=== PATIENT | male | born 1950 | race Caucasian/White ===

== ENCOUNTER 2017-01-20 09:51 | Day surgery (SDC) ==
[2015-09-05 19:20] VITALS: BMI 32.2
[2017-01-20] MEDS: ALBUTEROL 0.083% NEB NEB STA (12:22)
[2017-01-20] MEDS ORDERED: VERSED ONE (12:48)
[2017-01-20] MEDS ORDERED: LIDOCAINE HCL 2% LUER-JET ONE (12:48)
[2017-01-20] MEDS ORDERED: DIPRIVAN 20 ML VIAL IVP ONE (12:48)
[2017-01-20 15:07] VITALS: BP 116/74; TEMP 98
--- NOTE | 2017-01-21 08:24 | OP ---
PROCEDURE: EGD (ESOPHAGOGASTRODUODENOSCOPY) WITH BIOPSY. ENDOSCOPIST: Renate LI M.D. INDICATION: HISTORY OF VILLAFUERTE's INSTRUMENT: [id number]. MEDICATION: PER ANESTHESIA. PROCEDURE: The patient was positioned for endoscopy. The oropharynx was intubated quite easily with the endoscope and advanced from there to the level of the duodenum. The duodenum was grossly normal. The pylorus was widely patent. Retroflex exam reveals a large hiatal hernia. There is an apparent mass at the GE junction measuring 2cm in length by 1cm in width. This is very concerning for a early adenocarcinoma. Certainly could represent an inflammatory processes however it is very firm to the biopsy forceps. Multiple biopsies were obtained. This measured approximately 35cm from the incisors. He does have islands of Villafuerte's. This mass is emanating from below the GE junction. The remaining esophagus was normal. PLAN: 1. We will get a CBC, CEA and CT scan of the chest and abdomen scheduled. He will likely need an endoscopic ultrasound. 2. Further recommendations after we obtain this information. MTDD
--- NOTE | 2017-01-21 08:35 | OP ---
PROCEDURE: COLONOSCOPY TO THE CECUM WITH SNARE POLYPECTOMY. ENDOSCOPIST: Renate LI M.D. INDICATION: HISTORY OF POLYPS, LAST EXAM IN 2006 INSTRUMENT: [id number]. MEDICATION: PER ANESTHESIA. PROCEDURE: The patient was positioned for colonoscopy. The digital rectal exam was negative. The colonoscope was inserted through the anus with a noted poor prep on insertion. We were able to advance to the cecum however the prep was poor throughout. Large pieces of food including mushrooms noted throughout the colon. Apparently he ate yesterday. In the cecal pit I did find an 8mm sessile polyp which I removed snare cautery. Multiple attempts were made to irrigate and cleanse the colon however the solids prevented clearly of the mucosa to allow adequate exam. The procedure was therefore aborted. Retroflex exam was negative. PLAN: 1. He will need repeat colonoscopy with a good quality prep after we have had a chance to review this area noted on his endoscopy. CC: Dr. Keagan AMBRIZ
== END 2017-01-20 15:18 | disposition home or self-care (01) ==
LOC: SURG 09:51
PROVIDERS: ATTEND Internal Medicine Gastroenterology
DX: Z09 Encounter for follow-up examination after completed treatment for conditions other than malignant neoplasm (principal); Z86.010 Personal history of colon polyps; C15.5 Malignant neoplasm of lower third of esophagus; K63.5 Polyp of colon; K22.70 Barrett's esophagus without dysplasia; K44.9 Diaphragmatic hernia without obstruction or gangrene; Z53.8 Procedure and treatment not carried out for other reasons
CPT/HCPCS: 36415; 82378; 94640

== ENCOUNTER 2017-01-23 08:44 | Outpatient (CLI) ==
[2015-09-05 19:20] VITALS: BMI 32.2
--- NOTE | 2017-01-23 10:29 | CT ---
EXAM: CT chest with contrast HISTORY: Concern for esophageal lesion COMPARISON: Same day CT abdomen pelvis and prior CT chest 04/04/2014 TECHNIQUE: Serial axial images of the chest were obtained after 75 ml of Omnipaque IV contrast was a dministered. These were obtained from the lung apices to the upper abdomen. FINDINGS: The thyroid is normal. Visualized vessels are unremarkable. There is no dissection, aneu rysm or stenosis. The heart is normal in size without pericardial effusion. There are nonenlarged m ediastinal and hilar lymph nodes. There is a moderate hiatal hernia. No definitive esophageal lesion is identified with thickening of the posterior distal esophagus on image 44 which is nondistended. There is no pneumothorax or pleural effusion. There is moderate emphysematous disease which is uncha nged. There is consolidation which is contrast enhancing in the lingula which was present on prior s tudy in 2013, but has decreased in size. No additional pulmonary process is identified. Soft tissues in the upper abdomen are unremarkable on this limited evaluation. The osseous structur es demonstrate degenerative disease throughout the spine. IMPRESSION: 1. Small hiatal hernia with mild wall thickening in the distal esophagus which is nondistended. This may represent a area of soft tissue thickening/nodularity versus non distension. If further evaluat ion is clinically indicated, endoscopy is recommended. 2. No acute cardiopulmonary process. 3. Unchanged moderate emphysematous disease and lingular atelectasis. 4. Unchanged degenerative disease of the spine.
--- NOTE | 2017-01-23 10:41 | CT ---
EXAM: CT abdomen with contrast HISTORY: Concern for esophageal lesion. COMPARISON: Same day CT chest and CT abdomen pelvis 01/18/2014 TECHNIQUE: Serial axial images of the abdomen were obtained from the lung bases to the upper pelvis after the administration of 75 ml of IV contrast. These were viewed in multiple planes. FINDINGS: Lung bases are better evaluated on same day CT chest. There is a moderate hiatal hernia wi th questionable thickening of the posterior lateral right wall of the distal esophagus which is nondi stended. The stomach is normal. The liver is unremarkable. There is questionable layering sludge in the gall bladder with no wall thickening or inflammation. The adrenal glands are unremarkable. The kidneys a re normal. Spleen is unremarkable. Pancreas is normal. The small bowel in the abdomen is normal. Surgical changes are noted near the right colon. The colo n is otherwise unremarkable. There is no free air, free fluid or lymphadenopathy. There is mild ath erosclerotic disease. There is degenerative disease of the lumbar spine. IMPRESSION: 1. Mild posterior right esophageal wall thickening with a hiatal hernia. The os thickening may repr esent soft tissue versus distal esophageal nondistension. If further evaluation is clinically indica lorena, endoscopy may be obtained. 2. Probable gallbladder sludge. 3. Scattered degenerative disease of the spine is unchanged since prior exam.
== END 2017-01-23 08:45 | disposition home or self-care (01) ==
LOC: RAD 08:44
PROVIDERS: ATTEND Internal Medicine Gastroenterology
DX: K22.70 Barrett's esophagus without dysplasia (principal)

== ENCOUNTER 2017-04-27 05:29 | Inpatient (IN) ==
[2017-04-27] MEDS ORDERED: SODIUM CHLORIDE 1,000 ML IV STA (06:09)
[2017-04-27] MEDS ORDERED: ZOFRAN 4 MG/2 ML IVP STA (06:09)
--- NOTE | 2017-04-27 08:01 | CT ---
EXAM: CT chest without intravenous contrast 04/07/2017. Sagittal and coronal reformatted images obt ained HISTORY: Cough COMPARISON: 01/23/2017 FINDINGS: Left chest port well positioned. The heart size is within normal limits. No pericardial effusion. Small hiatal hernia. Emphysematous changes throughout both lungs. Interstitial prominence within the lingula and left lowe r lobe. This may relate to areas of atelectasis and/or pneumonia. No pleural effusion. No pneumothorax. IMPRESSION: 1. Emphysema. 2. Atelectasis and/or pneumonia within the lingula and left lower lobe. 3. Left chest port well positioned. 4. Small hiatal hernia.
--- NOTE | 2017-04-27 08:11 | CT ---
EXAM: CT abdomen pelvis without intravenous contrast 04/27/2017. Sagittal and coronal reformatted i mages obtained HISTORY: Cough COMPARISON: 01/23/2017 FINDINGS: The liver shows no acute abnormality. Sludge within the gallbladder. Small hiatal hernia . The adrenal glands and kidneys show no acute abnormality. The spleen and pancreas show no acute abnormality. There is no bowel obstruction. The appendix has been removed. Unremarkable urinary bladder. Chronic degenerative disc disease throughout the spine. Multilevel partial compression fracture. Th norris findings appear stable. No acute osseous abnormality. IMPRESSION: 1. Sludge in the gallbladder 2. Small hiatal hernia. 3. No urinary or bowel obstruction. 4. Chronic degenerative findings throughout the spine. No acute osseous abnormality. 5. No acute inflammatory process identified within the abdomen or pelvis within the limitation of a noncontrast enhanced examination.
--- NOTE | 2017-04-27 08:35 | ED.PDOC ---
General ED Provider: Dr. SAVANNAH CONNOR Chief Complaint: Nausea/Vomiting Stated Complaint: n, vomiting , short of air Time Seen by Physician: 07:00 (seen with nursing staff) Mode of Arrival: Walk-In Information Source: Patient, Family Exam Limitations: No limitations Primary Care Provider: TRUNG BARROSO Nursing and Triage Documentation Reviewed and Agree: Yes Reviewed sepsis parameters & appropriate labs ordered?: Yes System Inflammatory Response Syndrome: Not Applicable Sepsis Protocol: For patient's 13 years and over: Temp is 96.8 and below OR 101 and greater Pulse >90 BPM Resp >20/minute Acutely Altered Mental Status Are patient's symptoms suggestive of a new infection, such as: -Pneumonia -Skin, Soft Tissue -Endocarditis -UTI -Bone, Joint Infection -Implantable Device -Acute Abdominal Infection -Wound Infection -Meningitis -Blood Stream Catheter Infection -Unknown GI Complaint Exam - Vomiting/Diarrhea Complaint/Exam Onset/Duration: 4 days Symptoms Are: Still present Episodes of Vomiting over last 24 Hours: 2 Episodes of Diarrhea Over Last 24 Hours: 4 Initial Severity: Mild Current Severity: None Character of Vomiting: Reports: Non-bilious Character of Diarrhea: Reports: Watery Aggravating: Reports: None Alleviating: Reports: None Associated Signs and Symptoms: Reports: Abdominal pain, Cramping. Denies: Dizziness, Light-headedness, Melena, Hematemesis, Fever Related History: Reports: Similar episode (copd ) Non-GI Risk Factors: Reports: None Surgical Obstruction Risk Factors: Reports: None Related Surgical History: Reports: None Abdominal Findings: Present: None Differential Diagnoses: Viral Gastroenteritis, Other (copd) Review of Systems - Review Of Systems Constitutional: Reports: Malaise, Weakness, Loss of appetite Eyes: Reports: No symptoms Ears, Nose, Mouth, Throat: Reports: No symptoms Respiratory: Reports: Cough, Short of air, Wheezing Cardiac: Reports: No symptoms GI: Reports: Abdominal pain, Diarrhea, Nausea, Poor appetite, Vomiting : Reports: No symptoms Musculoskeletal: Reports: No symptoms Skin: Reports: No symptoms Neurological: Reports: No symptoms Endocrine: Reports: No symptoms Hematologic/Lymphatic: Reports: No symptoms All Other Systems: Reviewed and Negative Past Medical History - Past Medical History Previously Healthy: Yes Endocrine: Reports: None Cardiovascular: Reports: None Respiratory: Reports: COPD, Pneumonia Hematological: Reports: None Gastrointestinal: Reports: GERD, Other (Barretts esophagua. ) Genitourinary: Reports: None Neuro/Psych: Reports: None Musculoskeletal: Reports: None Cancer: Reports: None Other Pertinent Past Medical History: BPH - Surgical History General Surgical History: Reports: Appendectomy, Hernia Repair - Family History Family History: Reports: None - Social History Smoking Status: Current every day smoker, Heavy tobacco smoker Hx Substance Use: No Alcohol Screening: None - Immunizations Tetanus Shot up to Date: Yes Physical Exam - Physical Exam Appearance: Ill-appearing Ill-appearing: Moderate Pain Distress: Moderate Eyes: SATINDER, EOMI, Conjunctiva clear ENT: Ears normal, Nose normal, Oropharynx normal Respiratory: Rhonchi, Wheezes Cardiovascular: RRR, Pulses normal, No rub, No murmur GI/: Soft, Nontender, No masses, Bowel sounds normal, No Organomegaly Musculoskeletal: Normal strength, ROM intact, No edema, No calf tenderness Skin: Warm, Dry, Normal color Neurological: Sensation intact, Motor intact, Reflexes intact, Cranial nerves intact, Alert, Oriented Psychiatric: Affect appropriate, Mood appropriate Interpretation - Radiology Interpretation Radiology Interpretation By: Radiologist Radiology Results: Positive (infiltratewithin lingula and LLL) Physician Notification - Case Discussed Physician Notified: BARROSO Time of Notification: 08:37 (DISCUSSED ABG AND HISTORY OF CANCER PMD AT THIS TIME DOES NOT WISH FOR THE PT TO HAVE CHEST CT R/O PE) Admit To: Inpatient Critical Care Note - Critical Care Note Total Time (mins): 0 Course - Course Hematology/Chemistry: 04/27/17 06:23 04/27/17 06:23 Orders, Labs, Meds: Lab Review 04/27/17 04/27/17 04/27/17 05:45 06:08 06:23 WBC 13.34 H RBC 5.75 Hgb 17.3 Hct 53.5 H MCV 93.0 MCH 30.1 MCHC 32.3 RDW Coeff of Charisse 14.4 Plt Count 321 Immature Gran % (Auto) 0.5 Neut % (Auto) 77.0 Lymph % (Auto) 16.9 [place]inger % (Auto) 4.6 Eos % (Auto) 0.4 Baso % (Auto) 0.6 Immature Gran # (Auto) 0.1 Neut # 10.3 H Lymph # 2.3 [place]inger # 0.6 Eos # 0.1 Baso # 0.1 Puncture Site R rad O2 Saturation 86.0 L ABG pH 7.37 ABG pCO2 36.0 ABG pO2 53.0 L* ABG HCO3 21 L ABG Total CO2 22 ABG Base Excess -4 L Michael Test + FiO2 % 21.0 Sodium Potassium Chloride Carbon Dioxide Anion Gap BUN Creatinine Estimated GFR (MDRD) BUN/Creatinine Ratio Glucose Calcium Total Bilirubin AST ALT Alkaline Phosphatase Total Protein Albumin Globulin Albumin/Globulin Ratio Amylase Lipase Influenza A (Rapid) Negative Influenza B (Rapid) Negative 04/27/17 06:23 WBC RBC Hgb Hct MCV MCH MCHC RDW Coeff of Charisse Plt Count Immature Gran % (Auto) Neut % (Auto) Lymph % (Auto) [place] % (Auto) Eos % (Auto) Baso % (Auto) Immature Gran # (Auto) Neut # Lymph # Grainger # Eos # Baso # Puncture Site O2 Saturation ABG pH ABG pCO2 ABG pO2 ABG HCO3 ABG Total CO2 ABG Base Excess Michael Test FiO2 % Sodium 139 Potassium 3.6 Chloride 103 Carbon Dioxide 26 Anion Gap 13.6 BUN 13 Creatinine 1.64 H Estimated GFR (MDRD) 43.00 BUN/Creatinine Ratio 7.92 Glucose 97 Calcium 9.5 Total Bilirubin 1.0 AST 16 ALT 15 Alkaline Phosphatase 114 Total Protein 7.3 Albumin 3.2 L Globulin 4.1 Albumin/Globulin Ratio 0.78 Amylase 25 Lipase 4 L Influenza A (Rapid) Influenza B (Rapid) Orders Category Date Time Status ABG DRAW REQUEST Stat CARDIO 04/27/17 06:08 Completed EKG-(ED ONLY) Stat CARDIO 04/27/17 06:08 Completed NPO REMINDER: IMAGING ONCE CARE 04/27/17 08:16 Active IV [ED IV/MEDIPORT/POWERPORT] .ONCE EMERGENCY 04/27/17 06:09 Active ABG Stat LAB 04/27/17 06:08 Completed AMYLASE Stat LAB 04/27/17 06:23 Completed BLOOD CULTURE (ED ONLY) Stat LAB 04/27/17 06:23 Received CBC W/ AUTO DIFF Stat LAB 04/27/17 06:23 Completed COMPREHENSIVE METABOLIC PANEL Stat LAB 04/27/17 06:23 Completed FLU A & B RAPID TEST [RAPID FLU A/B] Stat LAB 04/27/17 05:45 Completed LIPASE Stat LAB 04/27/17 06:23 Completed MOLECULAR GROUP A STREP Stat LAB 04/27/17 05:45 Results STREP SCREEN Stat LAB 04/27/17 05:45 Results URINALYSIS C & S IF INDICATED Stat LAB 04/27/17 06:08 Uncollected 0.9 % Sodium Chloride [Saline Flush] MEDS 04/27/17 06:09 Active 1 syr IVF PRN PRN Ondansetron HCl/Pf [Zofran 4 mg/2 ml] MEDS 04/27/17 06:09 Discontinued 8 mg IVP ONCE STA Sodium Chloride 0.9% [Sodium Chloride] 1,000 ml MEDS 04/27/17 06:[address] ABDOMEN/PELVIS WO CONTRAST Stat RADS 04/27/17 06:[address] CHEST PE PROTOCOL Stat RADS 04/27/17 08:[address] CHEST W/O CONTRAST Stat RADS 04/27/17 06:09 Completed Medications Generic Name Dose Route Start Last Admin Trade Name Freq PRN Reason Stop Dose Admin Sodium Chloride 1 syr 04/27/17 06:09 04/27/17 06:38 Saline Flush IVF 1 syr PRN PRN Administration To flush IV Discontinued Medications Generic Name Dose Route Start Last Admin Trade Name Freq PRN Reason Stop Dose Admin Sodium Chloride 1,000 mls @ 1,000 mls/hr 04/27/17 06:09 04/27/17 06:38 Sodium Chloride IV 04/27/17 07:08 1,000 mls/hr BOLUS STA Administration Ondansetron HCl 8 mg 04/27/17 06:09 04/27/17 06:38 Zofran 4 Mg/2 Ml IVP 04/27/17 06:10 8 mg ONCE STA Administration Vital Signs: Temp Pulse Resp BP Pulse Ox 04/27/17 05:30 97.3 F L 89 20 101/70 95 Departure - Departure Time of Disposition: 08:36 Disposition: ADMITTED INPATIENT Discharge Problem: Nausea, Vomiting Pneumonia Qualifiers: Pneumonia type: due to unspecified organism Lung location: lower lobe of lung Instructions: Pneumonitis (ED) Condition: Good Pt referred to PMD for follow-up: Yes Additional Instructions: Please call your Family Physician as soon as possible to schedule a follow-up appointment. Allergies/Adverse Reactions: Allergies Penicillins Adverse Reaction (Verified 09/05/15 19:21) Home Medications: Ambulatory Orders Clonazepam 0.5 mg PO TID 04/15/13 Cyclobenzaprine HCl [Flexeril] 10 mg PO BID 04/15/13 Hydrocodone Bit/Acetaminophen [Lortab 10-500] 10 tab PO TID 04/15/13 Pantoprazole Sodium 40 mg PO DAILY 04/15/13 Fluticasone/Vilanterol [Breo Ellipta 100-25 Mcg INH] 1 puff INH DAILY 04/04/14 Roflumilast [Daliresp] 500 mcg PO DAILY 04/04/14 Tamsulosin HCl [Flomax] 0.4 mg PO DAILY 04/04/14 Budesonide/Formoterol Fumarate [Symbicort 160-4.5 Mcg Inhaler] 1 puff IH BID Guaifenesin [Mucinex] 600 mg PO BID 04/27/17 Ipratropium/Albuterol Neb [Duoneb] 1 vial NEB RTQ4H PRN 04/27/17 Promethazine HCl [Phenergan Tab] 25 mg PO PRN PRN 04/27/17 Sotalol HCl [Betapace] 80 mg PO BID 04/27/17 Sucralfate [Carafate] 1 gm PO Q6HR 04/27/17 Disposition Discussed With: Patient
[2017-04-27] MEDS ORDERED: PHENERGAN TAB PO PRN (08:45)
[2017-04-27] MEDS ORDERED: ROCEPHIN 1 GM in SODIUM CHLORIDE 50 ML IV STA (08:52)
[2017-04-27] MEDS ORDERED: HYDROCODONE BIT PO SCH (09:00)
[2017-04-27] MEDS ORDERED: ROCEPHIN 1 GM in SODIUM CHLORIDE 50 ML IV SCH (09:00)
[2017-04-27] MEDS ORDERED: ACETAMINOPHEN PO SCH (09:00)
[2017-04-27] MEDS ORDERED: ROCEPHIN ONE (09:11)
[2017-04-27] MEDS: DUONEB NEB SCH ×3 (10:35→20:13)
[2017-04-27] MEDS: SODIUM CHLORIDE 1,000 ML IV SCH (10:43)
[2017-04-27] MEDS: MUCINEX PO SCH ×2 (10:48→20:53)
[2017-04-27] MEDS: CARAFATE PO SCH ×3 (10:49→20:53)
[2017-04-27] MEDS: SOLU-MEDROL 40 MG IVP SCH ×2 (10:49→20:53)
[2017-04-27] MEDS: BETAPACE PO SCH ×2 (10:49→20:53)
[2017-04-27] MEDS: FLOMAX PO SCH (10:49)
[2017-04-27] MEDS: PROTONIX PO SCH (10:49)
[2017-04-27] MEDS: LOVENOX SUBCUT SCH (10:50)
[2017-04-27] MEDS: DALIRESP PO SCH (10:51)
[2017-04-27] MEDS: KLONOPIN PO SCH ×3 (10:54→20:53)
[2017-04-27] MEDS: NORCO 10-325 PO SCH ×3 (10:54→20:53)
[2017-04-27 11:39] VITALS: BMI 32.6
[2017-04-27] MEDS ORDERED: CARAFATE PO SCH (12:00)
[2017-04-27] MEDS ORDERED: DUONEB NEB SCH (12:00)
[2017-04-28] MEDS: SODIUM CHLORIDE 1,000 ML IV SCH ×4 (02:32→18:54)
[2017-04-28] MEDS: SYMBICORT 160-4.5 MCG INHALER IH SCH ×3 (02:39→20:12)
[2017-04-28] MEDS: DUONEB NEB SCH ×4 (04:58→23:45)
[2017-04-28] MEDS: CARAFATE PO SCH ×4 (05:30→20:13)
[2017-04-28] MEDS: PROTONIX PO SCH (05:30)
[2017-04-28] MEDS: SOLU-MEDROL 40 MG IVP SCH ×2 (08:27→20:13)
[2017-04-28] MEDS: BETAPACE PO SCH ×2 (08:53→20:13)
[2017-04-28] MEDS: FLOMAX PO SCH (08:53)
[2017-04-28] MEDS: DALIRESP PO SCH (08:54)
[2017-04-28] MEDS: MUCINEX PO SCH ×2 (08:54→20:13)
[2017-04-28] MEDS: KLONOPIN PO SCH ×3 (08:54→20:18)
[2017-04-28] MEDS: ROCEPHIN 1 GM in SODIUM CHLORIDE 50 ML IV SCH (08:59)
[2017-04-28] MEDS: NORCO 10-325 PO SCH ×3 (08:59→20:18)
[2017-04-28] MEDS: LOVENOX SUBCUT SCH (09:00)
--- NOTE | 2017-04-28 09:39 | DI ---
EXAM: CHEST FRONTAL VIEW HISTORY: Pneumonia, follow-up. COMPARISON: 09/05/2015 FINDINGS: Heart size within normal limits and stable. Left port catheter has been placed ending at the convergence of the brachiocephalic veins. Subtle linear densities in the bases may represent ate lectasis, minimal residual pneumonia or scarring. These have developed or are more noticeable since previous exam. There is no active vascular congestion, visible pleural fluid or pneumothorax. Limit ed portable exam. IMPRESSION: Linear opacities in the bases may represent atelectasis, scarring or minimal pneumonia. Correlate cli nically.
[2017-04-29] MEDS: PROTONIX PO SCH (05:42)
[2017-04-29] MEDS: CARAFATE PO SCH ×2 (05:42→10:54)
[2017-04-29 06:02] VITALS: BP 126/83; TEMP 97.6
[2017-04-29] MEDS: DUONEB NEB SCH ×2 (07:24→10:11)
[2017-04-29] MEDS: SODIUM CHLORIDE 1,000 ML IV SCH (08:50)
[2017-04-29] MEDS: FLOMAX PO SCH (09:01)
[2017-04-29] MEDS: ROCEPHIN 1 GM in SODIUM CHLORIDE 50 ML IV SCH (09:01)
[2017-04-29] MEDS: SYMBICORT 160-4.5 MCG INHALER IH SCH (09:01)
[2017-04-29] MEDS: MUCINEX PO SCH (09:01)
[2017-04-29] MEDS: BETAPACE PO SCH (09:01)
[2017-04-29] MEDS: DALIRESP PO SCH (09:02)
[2017-04-29] MEDS: KLONOPIN PO SCH (09:02)
[2017-04-29] MEDS: SOLU-MEDROL 40 MG IVP SCH (09:02)
[2017-04-29] MEDS: LOVENOX SUBCUT SCH (09:03)
[2017-04-29] MEDS: NORCO 10-325 PO SCH (09:12)
--- NOTE | 2017-04-29 10:31 | CM.DICTOOL ---
ADMISSION: 04/27/17 08:39 DISCHARGE: April 29, 2017 DATE OF SERVICE: 04/29/17 FINAL DIAGNOSIS ACUTE GASTRITIS, VIRAL DEHYDRATION ACUTE BRONCHITIS ESOPHAGEAL CANCER (NEWLY DIAGNOSED) GERD CARDIAC ARRHYTHMIA (BETAPACE) OSTEOARTHRITIS ENLARGED PROSTATE APPENDECTOMY, 2012 HERNIA REPAIR, 2012 FORMER SMOKER, STOPPED 2012 LAST VITALS Temp Pulse Resp BP Pulse Ox 97.6 F 93 H 18 126/83 95 04/29/17 06:00 04/29/17 06:00 04/29/17 06:00 04/29/17 06:00 04/29/17 06:00 ACTIVE HOME MEDICATIONS Acetaminophen/Hydrocodone Bitart (Merrill 10-325) 1 tab PO TID [facility] Last Admin: 04/29/17 09:12 Dose: 1 tab Albuterol/Ipratropium (Duoneb) 1 vial NEB Q4H PRN [facility] Last Admin: 04/29/17 07:24 Dose: Not Given Budesonide/Formoterol Fumarate (Symbicort 160-4.5 Mcg Inhaler) 1 puff IH BID [facility] Last Admin: 04/29/17 09:01 Dose: 1 puff Clonazepam (Klonopin) 0.5 mg PO TID [facility] Last Admin: 04/29/17 09:02 Dose: 0.5 mg Guaifenesin (Mucinex) 600 mg PO BID [facility] Last Admin: 04/29/17 09:01 Dose: 600 mg Pantoprazole Sodium (Protonix) 40 mg PO QDAC [facility] Last Admin: 04/29/17 05:42 Dose: 40 mg Promethazine HCl (Phenergan Tab) 25 mg PO Q4HR PRN PRN Reason: Nausea / Vomiting Roflumilast (Daliresp) 500 mcg PO DAILY [facility] Last Admin: 04/29/17 09:02 Dose: 500 mcg Sotalol HCl (Betapace) 80 mg PO BID [facility] Last Admin: 04/29/17 09:01 Dose: 80 mg Sucralfate (Carafate) 1 gm PO ACHS [facility] Last Admin: 04/29/17 05:42 Dose: 1 gm Tamsulosin HCl (Flomax) 0.4 mg PO DAILY [facility] Last Admin: 04/29/17 09:01 Dose: 0.4 mg Cyclobenzaprine HCL (Flexeril 10 mg PO BID Last Admin: ALLERGIES Penicillins Adverse Reaction (Verified 09/05/15 19:21) NEW PRESCRIPTIONS: PHENERGAN 25 MG SUPPOSITORY TID PRN NAUSEA/VOMITING KEFLEX 500 MG BID FOR 5 DAYS PREDNISONE 10 MG DAILY FOR 5 DAYS SMOKING: Not Applicable DISEASE SPECIFIC EDUCATION: Apoointment Prescriptions Use of Steroids and risk of GI irritation LAB REVIEW: 04/29/17 05:57 04/29/17 05:57 04/29/17 05:57: Sodium 139, Potassium 4.1, Chloride 105, Carbon Dioxide 28, Anion Gap 10.1, BUN 21 H, Creatinine 1.06, Estimated GFR (MDRD) 70.00, BUN/ Creatinine Ratio 19.81, Glucose 108, Calcium 8.9, Total Bilirubin 0.4, AST 23, ALT 18, Alkaline Phosphatase 81, Total Protein 5.8, Albumin 2.6 L, Globulin 3.2 , Albumin/Globulin Ratio 0.81 04/29/17 05:57: WBC 18.11 H, RBC 4.29 L, Hgb 12.9 L, Hct 40.3 L, MCV 93.9, MCH 30.1, MCHC 32.0, RDW Coeff of Charisse 14.4, Plt Count 271, Immature Gran % (Auto) 0.7, Neut % (Auto) 87.9, Lymph % (Auto) 7.8 L, [place] % (Auto) 3.5, Eos % (Auto) 0.0, Baso % (Auto) 0.1, Immature Gran # (Auto) 0.1, Neut # 15.9 H, Lymph # 1.4, [place] # 0.6, Eos # 0.0, Baso # 0.0 PLAN: Discharge home Diet: Resume as tolerated. Small frequent encouraged Activity: Resume as tolerated. Rest frequently An appointment is scheduled with Dr. Boogie on 2017 at 11:15 am. Continue all medications as listed on nursing discharge information sheet Continue nebulizer treatments as needed for shortness of air/cough Mr. Soriano is alert and oriented x 3. He reports poor sleep since his admission to the hospital. He denies abdominal pain, but reports nausea. He denies emesis last night or today. Appetite fair with intakes of 50-75% noted for yesterday. He reports he is scheduled to travel to [place], [place] on for an appointment regarding new diagnosis of esophageal cancer. Noted scattered areas of bruising to bilateral arms, dry skin to the legs and feet. No skin breakdown or debuitus ulcers are noted. Anthony Boogie MD
--- NOTE | 2017-04-29 11:26 | PCM.PROG ---
Attending Provider: ATTENDING PROVIDER: Dr. TRUNG BARROSO DATE OF SERVICE: 04/29/17 SUBJECTIVE: This 66 year old WHITE/ M was hospitalized 04/27/17. The patient is hospitalized with acute gastroenteritis, mostly vomiting. The patient also has acute bronchitis. Condition has improved remarkably. He has had no vomiting or diarrhea during his hospitalization. Condition has improved remarkably. He has a mild cough, is up and about with normal appetite. REVIEW OF SYSTEMS: CONSTITUTIONAL: No night sweats. No fatigue, malaise, lethargy. No fever or chills. HEENT: Eyes: No visual changes. No eye pain. No eye discharge. ENT: No runny nose. No epistaxis. No sinus pain. No odynophagia. No congestion. RESPIRATORY: Mild cough. No congestion. No hemoptysis. No shortness of breath. CARDIOVASCULAR: No angina symptoms. No CHF symptoms. No atypical chest pain for CAD. No palpitations. No orthopnea.. GASTROINTESTINAL: No abdominal pain. No nausea or vomiting. No diarrhea or constipation. No hematemesis. No hematochezia. GENITOURINARY: No urgency. No frequency. No dysuria. No hematuria. No obstructive symptoms. No discharge. No pain. No significant abnormal bleeding. MUSCULOSKELETAL: No musculoskeletal pain; no joint swelling. NEUROLOGICAL: Awake, alert, oriented to time, place and person. No headache. No neck pain. No syncope. No seizures. No dizziness. PSYCHIATRIC: Not anxious. No depression. No suicidal thoughts. No homicidal thoughts. SKIN: No rash. No lesions. No wounds. ENDOCRINE: No unexplained weight loss. No weight gain. HEMATOLOGIC/LYMPHATIC: No anemia. No purpura. No petechiae. No prolonged or excessive bleeding. No palpable lymph nodes. PHYSICAL EXAMINATION: GENERAL: The patient is awake, alert and oriented, lying in bed in no distress. VITAL SIGNS: Temperature 97.6 F, Pulse 93, Respiratory Rate 18, BP 126/83, Pulse Ox 95% HEENT: Head normocephalic, atraumatic. Eyes: Extraocular muscles are intact. Pupils are equal, round and reactive to light and accommodation. Ears: No lesions. Nose appeared normal. Throat: No exudate or erythema. NECK: Supple. No JVD, no carotid bruit. No lymphadenopathy or thyromegaly. LUNGS: Decreased breath sounds. Clear to auscultation. Percussion note normal. Chest symmetrical. HEART: S1, S2, no S3. No murmurs. No cyanosis or clubbing. No ascites. Pulses: Dorsalis pedis and posterior tibial pulses +1 to +2 both sides. ABDOMEN: Soft. Non-tender. Bowel sounds active. No CVA tenderness. No mass felt. EXTREMITIES: No edema. Full range of motion of all extremities, equal. NEUROLOGIC: No focal deficit. Cranial nerves II through XII are grossly intact. No headache, no double vision or headache. SKIN: Not dry. Intact. Turgor-normal. LYMPHATIC: No palpable lymph nodes/no lymphedema. MUSCULOSKELETAL: Normal joints with no swelling. Muscle tone is normal. LAB REVIEW: 04/29/17 05:57 04/29/17 05:57 04/29/17 05:57: Sodium 139, Potassium 4.1, Chloride 105, Carbon Dioxide 28, Anion Gap 10.1, BUN 21 H, Creatinine 1.06, Estimated GFR (MDRD) 70.00, BUN/ Creatinine Ratio 19.81, Glucose 108, Calcium 8.9, Total Bilirubin 0.4, AST 23, ALT 18, Alkaline Phosphatase 81, Total Protein 5.8, Albumin 2.6 L, Globulin 3.2 , Albumin/Globulin Ratio 0.81 04/29/17 05:57: WBC 18.11 H, RBC 4.29 L, Hgb 12.9 L, Hct 40.3 L, MCV 93.9, MCH 30.1, MCHC 32.0, RDW Coeff of Charisse 14.4, Plt Count 271, Immature Gran % (Auto) 0.7, Neut % (Auto) 87.9, Lymph % (Auto) 7.8 L, [place] % (Auto) 3.5, Eos % (Auto) 0.0, Baso % (Auto) 0.1, Immature Gran # (Auto) 0.1, Neut # 15.9 H, Lymph # 1.4, [place] # 0.6, Eos # 0.0, Baso # 0.0 ASSESSMENT: 1. Acute gastroenteritis resolved PLAN: 1. Discharge home 2. Continue same meds as before 3. The patient has appointment with bowling ball patcher at [facility] [place] 4. Phenergan suppository p.r.n. three times daily p.r.n. nausea and vomiting 5. Keflex 500 mg b.i.d. for 5 days 6. Prednisone 10 mg daily for 5 days Plan and coordination of the patient's care discussed in the presence of Motorcycle Designer and nurse. CONDITION: Stable SCRIBED BY: DAVID MARTINEZ Advertising Job Titles scribed while in presence of service performed by Dr. TRUNG BARROSO on 04/29/17 ([id number])
--- NOTE | 2017-04-30 12:48 | PN ---
DATE OF SERVICE: 04/27/17 - ADMITTING NOTE SUBJECTIVE: 66-year-old white male came to the emergency room with severe acute gastroenteritis. The patient had vomited every 15 minutes for 8 hours and also had severe diarrhea. They were sudden onset. The patient was seen and examined in the emergency room by ER attending and noted to be in severe dehydration with creatinine of 1.6, BUN of 13. The patient's other problem is CA of the esophagus being evaluated by weld inspector. The patient is being referred to [place]. The patient also had mild cough, congestion and bronchitis type of symptoms a few days before he started having acute gastroenteritis type of symptoms. REVIEW OF SYSTEMS: CONSTITUTIONAL: Feels weak and tired. No night sweats. No fever or chills. HEENT: Eyes: No visual changes. No eye pain. No eye discharge. ENT: No runny nose. No epistaxis. No sinus pain. No sore throat. No odynophagia. No congestion. RESPIRATORY: No cough, no congestion. No hemoptysis. No shortness of breath. No PND. CARDIOVASCULAR: No angina symptoms. No CHF symptoms. No atypical chest pain for CAD. No palpitations. No orthopnea. GASTROINTESTINAL: Nausea has subsided. Diarrhea has practically subsided. No abdominal pain. No hematemesis. No hematochezia. GENITOURINARY: No urgency. No frequency. No dysuria. No hematuria. No obstructive symptoms. No discharge. No pain. No significant abnormal bleeding. MUSCULOSKELETAL: No musculoskeletal pain; no joint swelling. NEUROLOGICAL: No headache. No neck pain. No syncope. No seizures. No dizziness. PSYCHIATRIC: Not anxious. No depression. No suicidal thoughts. No homicidal thoughts. SKIN: No rash. No lesions. No wounds. ENDOCRINE: No unexplained weight loss. No weight gain. HEMATOLOGIC/LYMPHATIC: No anemia. No purpura. No petechiae. No prolonged or excessive bleeding. No palpable lymph nodes. ALLERGIES: PENICILLIN MEDICATIONS: Clonazepam 0.5 mg p.o. t.i.d. Flexeril 10 mg p.o. twice a day Lortab 10 mg/500 one tablet p.o. t.i.d. Pantoprazole 40 mg p.o. daily Breo one puff daily Daliresp 500 mcg p.o. daily Flomax 0.4 mg p.o. daily Symbicort 160/4.5 one puff twice a day Mucinex 600 mg twice a day Duoneb q.4hr as needed Phenergan tablet 25 mg p.r.n. Sotalol 80 mg twice a day Carafate 1 gm p.o. q.6 PERSONAL/FAMILY/SOCIAL HISTORY; The patient is , lives with his . Nonsmoker. No alcohol abuse. 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 The patient is being referred to [place]. The patient was earlier seen by weld inspector and surgeons at two places, Dr. Barney and Dr. Kurtz and they explained to him that they don' t do this procedure where they resect out the esophagus that frequently so they recommended him to be evaluated at a center where this is done frequently like [place] or [place]. The patient's other problems are prostatism, COPD, atrial arrhythmias, reflux symptoms, generalized osteoarthritis. PHYSICAL EXAMINATION: VITAL SIGNS: Temperature 98.5, pulse 110/min, respiratory rate 24, BP 101/70, pulse ox 99%. HEENT: Head normocephalic, atraumatic. Eyes: Extraocular muscles are intact. Pupils are equal, round and reactive to light and accommodation. Ears: No lesions. Nose appeared normal. Throat: No exudate or erythema. NECK: Supple. No JVD, no carotid bruit. No lymphadenopathy or thyromegaly. LUNGS: Decreased breath sounds but clear to auscultation. Percussion note normal. Chest symmetrical. HEART: S1, S2, no S3. No murmurs. No cyanosis or clubbing. No ascites. Pulses: Dorsalis pedis and posterior tibial pulses +1 to +2 both sides. ABDOMEN: Soft. Nontender. Bowel sounds active. No CVA tenderness. No mass felt. EXTREMITIES: No edema. Full range of motion of all extremities, equal. NEUROLOGIC: No focal deficit. Cranial nerves II through XII are grossly intact. No headache, no double vision or headache. SKIN: Not dry. Intact. Turgor - normal. LYMPHATIC: No palpable lymph nodes/no lymphedema. MUSCULOSKELETAL: Normal joints with no swelling. Muscle tone is normal. LABS: Hemoglobin 17.3, hematocrit 53, WBC 13,000, normal differential. Creatinine 1.6 , BUN 13, potassium 3.6. ASSESSMENT: 1. ACUTE GASTROENTERITIS 2. CA OF THE ESOPHAGUS 3. SEVERE CHRONIC LUNG DISEASE WITH HYPOXEMIA 4. ACUTE BRONCHITIS 5. BMI 33 PLAN: 1. IV STEROIDS 2. IV ANTIBIOTICS 3. IV FLUIDS 4. WATCH FOR FLUID OVERLOAD 5. WATCH OXIMETRY 6. CONTINUE SOTALOL, CARAFATE AND NEBS TREATMENT TIME SPENT: More than 30 minutes. Plan and coordination of the patient's care discussed in the presence of nurse. KATINA
--- NOTE | 2017-04-30 12:59 | HP ---
DATE OF SERVICE: 04/27/17 HISTORY OF PRESENT ILLNESS: 66-year-old white male came to the emergency room with severe acute gastroenteritis. The patient had vomited every 15 minutes for 8 hours and also had severe diarrhea. They were sudden onset. The patient was seen and examined in the emergency room by ER attending and noted to be in severe dehydration with creatinine of 1.6, BUN of 13. The patient's other problem is CA of the esophagus being evaluated by funeral car driver. The patient is being referred to [place]. The patient also had mild cough, congestion and bronchitis type of symptoms a few days before he started having acute gastroenteritis type of symptoms. REVIEW OF SYSTEMS: CONSTITUTIONAL: Feels weak and tired. No night sweats. No fever or chills. HEENT: Eyes: No visual changes. No eye pain. No eye discharge. ENT: No runny nose. No epistaxis. No sinus pain. No sore throat. No odynophagia. No congestion. RESPIRATORY: No cough, no congestion. No hemoptysis. No shortness of breath. No PND. CARDIOVASCULAR: No angina symptoms. No CHF symptoms. No atypical chest pain for CAD. No palpitations. No orthopnea. GASTROINTESTINAL: Nausea has subsided. Diarrhea has practically subsided. No abdominal pain. No hematemesis. No hematochezia. GENITOURINARY: No urgency. No frequency. No dysuria. No hematuria. No obstructive symptoms. No discharge. No pain. No significant abnormal bleeding. MUSCULOSKELETAL: No musculoskeletal pain; no joint swelling. NEUROLOGICAL: No headache. No neck pain. No syncope. No seizures. No dizziness. PSYCHIATRIC: Not anxious. No depression. No suicidal thoughts. No homicidal thoughts. SKIN: No rash. No lesions. No wounds. ENDOCRINE: No unexplained weight loss. No weight gain. HEMATOLOGIC/LYMPHATIC: No anemia. No purpura. No petechiae. No prolonged or excessive bleeding. No palpable lymph nodes. ALLERGIES: PENICILLIN MEDICATIONS: Clonazepam 0.5 mg p.o. t.i.d. Flexeril 10 mg p.o. twice a day Lortab 10 mg/500 one tablet p.o. t.i.d. Pantoprazole 40 mg p.o. daily Breo one puff daily Daliresp 500 mcg p.o. daily Flomax 0.4 mg p.o. daily Symbicort 160/4.5 one puff twice a day Mucinex 600 mg twice a day Duoneb q.4hr as needed Phenergan tablet 25 mg p.r.n. Sotalol 80 mg twice a day Carafate 1 gm p.o. q.6 PERSONAL/FAMILY/SOCIAL HISTORY; The patient is , lives with his . Nonsmoker. No alcohol abuse. 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 The patient is being referred to [place]. The patient was earlier seen by funeral car driver and surgeons at two places, Dr. Barney and Dr. Kurtz and they explained to him that they don' t do this procedure where they resect out the esophagus that frequently so they recommended him to be evaluated at a center where this is done frequently like [place] or [place]. The patient's other problems are prostatism, COPD, atrial arrhythmias, reflux symptoms, generalized osteoarthritis. PHYSICAL EXAMINATION: VITAL SIGNS: Temperature 98.5, pulse 110/min, respiratory rate 24, BP 101/70, pulse ox 99%. HEENT: Head normocephalic, atraumatic. Eyes: Extraocular muscles are intact. Pupils are equal, round and reactive to light and accommodation. Ears: No lesions. Nose appeared normal. Throat: No exudate or erythema. NECK: Supple. No JVD, no carotid bruit. No lymphadenopathy or thyromegaly. LUNGS: Decreased breath sounds but clear to auscultation. Percussion note normal. Chest symmetrical. HEART: S1, S2, no S3. No murmurs. No cyanosis or clubbing. No ascites. Pulses: Dorsalis pedis and posterior tibial pulses +1 to +2 both sides. ABDOMEN: Soft. Nontender. Bowel sounds active. No CVA tenderness. No mass felt. EXTREMITIES: No edema. Full range of motion of all extremities, equal. NEUROLOGIC: No focal deficit. Cranial nerves II through XII are grossly intact. No headache, no double vision or headache. SKIN: Not dry. Intact. Turgor - normal. LYMPHATIC: No palpable lymph nodes/no lymphedema. MUSCULOSKELETAL: Normal joints with no swelling. Muscle tone is normal. LABS: Hemoglobin 17.3, hematocrit 53, WBC 13,000, normal differential. Creatinine 1.6 , BUN 13, potassium 3.6. ASSESSMENT: 1. ACUTE GASTROENTERITIS 2. CA OF THE ESOPHAGUS 3. SEVERE CHRONIC LUNG DISEASE WITH HYPOXEMIA 4. ACUTE BRONCHITIS 5. BMI 33 PLAN: 1. IV STEROIDS 2. IV ANTIBIOTICS 3. IV FLUIDS 4. WATCH FOR FLUID OVERLOAD 5. WATCH OXIMETRY 6. CONTINUE SOTALOL, CARAFATE AND NEBS TREATMENT TIME SPENT: More than 70 minutes. MTDD
--- NOTE | 2017-05-22 15:06 | PN ---
DATE OF SERVICE: 04/28/17 SUBJECTIVE: 66-year-old white male hospitalized with acute gastroenteritis and acute bronchitis, more like flu syndrome. The patient's condition has improved remarkably. He has been able to eat now and keep it down. No diarrhea. Bronchitis symptoms are under control. REVIEW OF SYSTEMS: CONSTITUTIONAL: No night sweats. No fatigue, malaise, lethargy. No fever or chills. HEENT: Eyes: No visual changes. No eye pain. No eye discharge. ENT: No runny nose. No epistaxis. No sinus pain. No sore throat. No odynophagia. No congestion. RESPIRATORY: No cough, no congestion. No hemoptysis. No shortness of breath. CARDIOVASCULAR: No angina symptoms. No CHF symptoms. No atypical chest pain for CAD. No palpitations. No orthopnea. GASTROINTESTINAL: No abdominal pain. No nausea or vomiting. No diarrhea or constipation. No hematemesis. No hematochezia. GENITOURINARY: No urgency. No frequency. No dysuria. No hematuria. No obstructive symptoms. No discharge. No pain. No significant abnormal bleeding. MUSCULOSKELETAL: No musculoskeletal pain; no joint swelling. NEUROLOGICAL: No headache. No neck pain. No syncope. No seizures. No dizziness. PSYCHIATRIC: Not anxious. No depression. No suicidal thoughts. No homicidal thoughts. SKIN: No rash. No lesions. No wounds. ENDOCRINE: No unexplained weight loss. No weight gain. HEMATOLOGIC/LYMPHATIC: No anemia. No purpura. No petechiae. No prolonged or excessive bleeding. No palpable lymph nodes. PHYSICAL EXAMINATION: GENERAL: The patient is oriented to time, place and person. VITAL SIGNS: Temperature 97, pulse 97, respiratory rate 15, BP 126/90, pulse ox 97% on room air. HEENT: Head normocephalic, atraumatic. Eyes: Extraocular muscles are intact. Pupils are equal, round and reactive to light and accommodation. Ears: No lesions. Nose appeared normal. Throat: No exudate or erythema. NECK: Supple. No JVD, no carotid bruit. No lymphadenopathy or thyromegaly. LUNGS: Decreased breath sounds but clear to auscultation. Percussion note normal. Chest symmetrical. HEART: S1, S2, no S3. No murmurs. No cyanosis or clubbing. No ascites. Pulses: Dorsalis pedis and posterior tibial pulses +1 to +2 both sides. ABDOMEN: Soft. Nontender. Bowel sounds active. No CVA tenderness. No mass felt. EXTREMITIES: No edema. Full range of motion of all extremities, equal. NEUROLOGIC: No focal deficit. Cranial nerves II through XII are grossly intact. No headache, no double vision or headache. SKIN: Not dry. Intact. Turgor - normal. LYMPHATIC: No palpable lymph nodes/no lymphedema. MUSCULOSKELETAL: Normal joints with no swelling. Muscle tone is normal. ASSESSMENT: 1. ACUTE GASTROENTERITIS RESOLVED 2. DEHYDRATION, RESOLVED. KIDNEY FUNCTION 1.3 CREATININE, BUN 20 MUCH BETTER. HYDRATION STATUS ON PHYSICAL EXAM IS GOOD. SKIN TURGOR IS GOOD. 3. ACUTE BRONCHITIS SEEMS TO BE UNDER CONTROL. PLAN: 1. Continue symptomatic treatment, antibiotics. 2. The patient is advised to be up and about. CONDITION: Stable. TIME SPENT: More than 30 minutes. Plan and coordination of the patient's care discussed in the presence of nurse. KATINA
--- NOTE | 2017-05-23 10:53 | DS ---
DATE OF SERVICE: 04/29/17 FINAL DIAGNOSIS: 1. ACUTE GASTRITIS, VIRAL 2. DEHYDRATION 3. ACUTE BRONCHITIS 4. ESOPHAGEAL CANCER (NEWLY DIAGNOSED) 5. GERD 6. CARDIAC ARRHYTHMIA (BETAPACE) 7. OSTEOARTHRITIS 8. ENLARGED PROSTATE 9. APPENDECTOMY, 2012 10. HERNIA REPAIR, 2012 11. FORMER SMOKER, STOPPED 2012 DISCHARGE INSTRUCTIONS: Followup appointment with Dr. Boogie on 05/07/17 at 11:15 a.m. MEDICATIONS AT DISCHARGE: Continue nebulizer treatments as needed for shortness of air/cough [place] 10-325 mg one tab p.o. t.i.d. HUI Duoneb q.4h p.r.n. HUI Symbicort 160-4.5 mcg inhaler one puff IH b.i.d. HUI Klonopin 0.5 mg p.o. t.i.d. HUI Mucinex 600 mg p.o. b.i.d. HUI Protonix 40 mg p.o. q.d. a.c. HUI Phenergan 25 mg p.o. q.4h p.r.n. Daliresp 500 mcg p.o. daily HUI Betapace 80 mg p.o. b.i.d. HUI Carafate 1 gm p.o. a.c. h.s. HUI Flomax 0.4 mg p.o. daily HUI Flexeril 10 mg p.o. b.i.d. NEW PRESCRIPTIONS: Phenergan 25 mg suppository t.i.d. p.r.n. nausea and vomiting Keflex 500 mg b.i.d. for 5 days Prednisone 10 mg daily for 5 days DIET INSTRUCTIONS: Resume as tolerated. Small frequent encouraged. ACTIVITY: Resume as tolerated, rest frequently. SMOKING: N/A DISEASE SPECIFIC EDUCATION: Appointment Prescriptions Use of seroids and risk of GI irritation HOSPITAL COURSE: 66-year-old white male hospitalized with acute gastritis with vomiting every 15 minutes for 8 hours. The patient was severely dehydrated. His kidney functions were abnormal. On discharge, the patient's BUN practically returned to the original level with remarkable improvement in his skin turgor. His appetite was better. He did not have any nausea or vomiting. He was given Phenergan suppository in case he has any vomiting again. The patient has esophageal CA. He was able to eat without much problem at all. He was up and about. Acute bronchitis type of symptoms were treated with IV antibiotics. On discharge, he was put on Keflex. Condition at time of discharge is stable. Very likely the patient had viral flu syndrome with acute gastritis and acute bronchitis. CONDITION: Stable. TIME SPENT: More than 60 minutes. MTDD
--- NOTE | 2017-05-23 10:54 | PN ---
CODING FOR BILLIN04/27/17 LEVEL 5 04/28/17 INTERMEDIATE 04/29/17 DISCHARGE MTDD
== END 2017-04-29 11:55 | disposition home or self-care (01) | DRG 392 ==
LOC: ED 05:29 → MEDSURG A 08:39
PROVIDERS: ADMIT Internal Medicine; ATTEND Internal Medicine
DX: K29.00 Acute gastritis without bleeding (principal); J44.0 Chronic obstructive pulmonary disease with (acute) lower respiratory infection; C15.9 Malignant neoplasm of esophagus, unspecified; J20.9 Acute bronchitis, unspecified; R11.2 Nausea with vomiting, unspecified; R09.02 Hypoxemia; R06.02 Shortness of breath; E86.0 Dehydration; K21.9 Gastro-esophageal reflux disease without esophagitis; I49.9 Cardiac arrhythmia, unspecified; M19.90 Unspecified osteoarthritis, unspecified site; N40.0 Benign prostatic hyperplasia without lower urinary tract symptoms; F17.200 Nicotine dependence, unspecified, uncomplicated; Z95.828 Presence of other vascular implants and grafts; Z98.890 Other specified postprocedural states; Z79.899 Other long term (current) drug therapy; Z68.33 Body mass index [BMI] 33.0-33.9, adult
CPT/HCPCS: 36415; 80053; 81001; 82150; 82550; 82803; 83690; 84484; 85025; 87040; 87086; 87502; 87651; 87880; 93005; 93010; 94640; 96361; 96365; 96375; 99284

== ENCOUNTER 2017-05-07 12:26 | Inpatient (IN) ==
[2017-05-07] MEDS ORDERED: SOLU-MEDROL 125 MG IVP STA (13:11)
[2017-05-07] MEDS ORDERED: TORADOL IVP STA (13:12)
[2017-05-07] MEDS ORDERED: TUSSIONEX PO STA (13:13)
[2017-05-07 13:27] VITALS: BMI 29.3
[2017-05-07] MEDS ORDERED: XOPENEX 1.25 MG NEB STA (13:33)
[2017-05-07] MEDS: DEXTROSE 5%-1/2NS IV SOLUTION 1,000 ML IV SCH (14:11)
[2017-05-07] MEDS: SOLU-CORTEF 250 MG IVP SCH ×2 (14:22→20:53)
[2017-05-07] MEDS: LEVAQUIN 500 MG in PREMIX 100 ML D5W 1 BAG IV SCH (14:22)
[2017-05-07] MEDS: XOPENEX 1.25 MG NEB SCH ×2 (18:47→23:20)
[2017-05-07] MEDS: TORADOL IVP SCH (20:53)
[2017-05-07] MEDS: TAMIFLU PO SCH (20:53)
[2017-05-07] MEDS: TUSSIONEX PO SCH (20:54)
[2017-05-07] MEDS ORDERED: SOLU-MEDROL 125 MG IVP SCH (21:00)
[2017-05-08] MEDS: DEXTROSE 5%-1/2NS IV SOLUTION 1,000 ML IV SCH (02:59)
[2017-05-08] MEDS: SOLU-CORTEF 250 MG IVP SCH ×3 (04:07→21:15)
[2017-05-08] MEDS: TORADOL IVP SCH ×3 (04:07→21:15)
[2017-05-08] MEDS: XOPENEX 1.25 MG NEB SCH ×4 (04:53→23:12)
[2017-05-08] MEDS: TUSSIONEX PO SCH ×2 (09:09→21:15)
[2017-05-08] MEDS: TAMIFLU PO SCH ×2 (09:09→21:16)
[2017-05-08] MEDS: LEVAQUIN 500 MG in PREMIX 100 ML D5W 1 BAG IV SCH (09:09)
--- NOTE | 2017-05-08 10:11 | PCM.PROG ---
Attending Provider: ATTENDING PROVIDER: Dr. TRUNG BOOGIE This patient is seen with Radha Garvey, Nurse Practitioner. DATE OF SERVICE: 05/08/17 SUBJECTIVE: This 66 year old WHITE/ M was hospitalized 05/07/17. The patient is lying in bed, alert. Shortness of breath improved. The patient states he is dizzy when sitting up. REVIEW OF SYSTEMS: CONSTITUTIONAL: Fatigue. No night sweats. No fever or chills. HEENT: Eyes: No visual changes. No eye pain. No eye discharge. ENT: No runny nose. No epistaxis. No sinus pain. No odynophagia. No congestion. RESPIRATORY: Cough. No congestion. No hemoptysis. Positive for shortness of breath. CARDIOVASCULAR: No angina symptoms. No CHF symptoms. No atypical chest pain for CAD. No palpitations. No orthopnea.. GASTROINTESTINAL: No abdominal pain. No nausea or vomiting. No diarrhea or constipation. No hematemesis. No hematochezia. GENITOURINARY: No urgency. No frequency. No dysuria. No hematuria. No obstructive symptoms. No discharge. No pain. No significant abnormal bleeding. MUSCULOSKELETAL: No musculoskeletal pain; no joint swelling. NEUROLOGICAL: Awake, alert, oriented to time, place and person. No headache. No neck pain. No syncope. No seizures. No dizziness. PSYCHIATRIC: Not anxious. No depression. No suicidal thoughts. No homicidal thoughts. SKIN: No rash. No lesions. No wounds. ENDOCRINE: No unexplained weight loss. No weight gain. HEMATOLOGIC/LYMPHATIC: No anemia. No purpura. No petechiae. No prolonged or excessive bleeding. No palpable lymph nodes. PHYSICAL EXAMINATION: GENERAL: The patient is awake, alert and oriented, lying in bed in no distress. VITAL SIGNS: Temperature 98.1 F, Pulse 84, Respiratory Rate 18, BP 107/79, Pulse Ox 98% HEENT: Head normocephalic, atraumatic. Eyes: Extraocular muscles are intact. Pupils are equal, round and reactive to light and accommodation. Ears: No lesions. Nose appeared normal. Throat: No exudate or erythema. NECK: Supple. No JVD, no carotid bruit. No lymphadenopathy or thyromegaly. LUNGS: Diminished breath sounds bilaterally. Clear to auscultation. Percussion note normal. Chest symmetrical. HEART: S1, S2, no S3. No murmurs. No cyanosis or clubbing. No ascites. Pulses: Dorsalis pedis and posterior tibial pulses +1 to +2 both sides. ABDOMEN: Soft. Non-tender. Bowel sounds active. No CVA tenderness. No mass felt. EXTREMITIES: No edema. Full range of motion of all extremities, equal. NEUROLOGIC: No focal deficit. Cranial nerves II through XII are grossly intact. No headache, no double vision or headache. SKIN: Not dry. Intact. Turgor-normal. LYMPHATIC: No palpable lymph nodes/no lymphedema. MUSCULOSKELETAL: Normal joints with no swelling. Muscle tone is normal. LAB REVIEW: 05/08/17 04:35 05/08/17 04:35 05/08/17 04:35: Sodium 130 L, Potassium 3.9, Chloride 96 L, Carbon Dioxide 26, Anion Gap 11.9, BUN 21 H, Creatinine 1.99 H, Estimated GFR (MDRD) 34.00, BUN/ Creatinine Ratio 10.55, Glucose 136 H, Calcium 8.4, Total Bilirubin 0.6, AST 16 , ALT 14, Alkaline Phosphatase 78, Total Protein 5.7 L, Albumin 2.5 L, Globulin 3.2, Albumin/Globulin Ratio 0.78 05/08/17 04:35: WBC 11.45 H D, RBC 3.98 L, Hgb 12.0 L, Hct 36.7 L, MCV 92.2, MCH 30.2, MCHC 32.7, RDW Coeff of Charisse 14.6, Plt Count 265, Immature Gran % (Auto ) 0.7, Neut % (Auto) 84.5, Lymph % (Auto) 12.9, [place] % (Auto) 1.8, Eos % (Auto) 0.0, Baso % (Auto) 0.1, Immature Gran # (Auto) 0.1, Neut # 9.7 H, Lymph # 1.5, [place] # 0.2 L, Eos # 0.0, Baso # 0.0 05/07/17 13:45: Influenza A (Rapid) Positive by naat H, Influenza B (Rapid) Negative by naat 05/07/17 13:35: Sodium 132 L, Potassium 3.7, Chloride 96 L, Carbon Dioxide 27, Anion Gap 12.7, BUN 12, Creatinine 1.68 H, Estimated GFR (MDRD) 41.00, BUN/ Creatinine Ratio 7.14, Glucose 94, Calcium 8.9, Total Bilirubin 1.1, AST 21, ALT 17, Alkaline Phosphatase 96, Total Protein 6.5, Albumin 3.0 L, Globulin 3.5 , Albumin/Globulin Ratio 0.86 05/07/17 13:35: WBC 21.66 H, RBC 4.48 L, Hgb 13.6 L, Hct 41.5 L, MCV 92.6, MCH 30.4, MCHC 32.8, RDW Coeff of [place]isse 14.8, Plt Count 311, Immature Gran % (Auto) 0.9, Neut % (Auto) 78.6, Lymph % (Auto) 13.0, [place] % (Auto) 7.1, Eos % (Auto) 0.0, Baso % (Auto) 0.4, Immature Gran # (Auto) 0.2, Neut # 17.0 H, Lymph # 2.8, [place] # 1.5, Eos # 0.0, Baso # 0.1 ASSESSMENT: 1. Influenza A 2. Acute bronchitis 3. Dehydration 4. Chronic kidney disease 5. COPD 6. Esophageal cancer, sees Dr. Lincoln PLAN: 1. Continue home meds 2. Hold Flomax 3. Carafate 4. Phenergan p.r.n. 5. Hold Betapace 6. Routine Telemetry orders 7. Appt with Dr. Lincoln 05/12/16, will be starting chemo and radiation Plan and coordination of the patient's care discussed in the presence of Associate Director and nurse. CONDITION: Stable SCRIBED BY: Manoj CHU scribed while in presence of service performed by Dr. Boogie/Radha Garvey APRN on 05/08/17 ([id number])
[2017-05-08] MEDS ORDERED: PHENERGAN TAB PO PRN (12:13)
[2017-05-08] MEDS: FLEXERIL PO SCH ×2 (12:50→21:16)
[2017-05-08] MEDS: SYMBICORT 160-4.5 MCG INHALER IH SCH ×2 (12:50→21:15)
[2017-05-08] MEDS: DALIRESP PO SCH (12:51)
[2017-05-08] MEDS: SODIUM CHLORIDE 1,000 ML IV SCH (12:52)
[2017-05-08] MEDS ORDERED: HYDROCODONE BIT PO SCH (15:00)
[2017-05-08] MEDS ORDERED: ACETAMINOPHEN PO SCH (15:00)
[2017-05-08] MEDS: KLONOPIN PO SCH ×2 (15:39→21:16)
[2017-05-08] MEDS: NORCO 10-325 PO SCH ×2 (15:39→21:16)
[2017-05-08] MEDS: CARAFATE PO SCH ×2 (17:08→21:16)
[2017-05-08] MEDS: PROTONIX PO SCH (17:08)
[2017-05-08] MEDS ORDERED: CARAFATE PO SCH (18:00)
[2017-05-09] MEDS: XOPENEX 1.25 MG NEB SCH ×4 (03:56→23:44)
[2017-05-09] MEDS: TORADOL IVP SCH ×3 (05:51→20:47)
[2017-05-09] MEDS: PROTONIX PO SCH ×2 (05:51→16:58)
[2017-05-09] MEDS: SOLU-CORTEF 250 MG IVP SCH ×3 (05:51→20:47)
[2017-05-09] MEDS: CARAFATE PO SCH ×4 (05:51→20:47)
[2017-05-09] MEDS: SYMBICORT 160-4.5 MCG INHALER IH SCH ×2 (09:40→20:51)
[2017-05-09] MEDS: TUSSIONEX PO SCH ×2 (09:41→20:47)
[2017-05-09] MEDS: TAMIFLU PO SCH ×2 (09:41→20:47)
[2017-05-09] MEDS: FLEXERIL PO SCH ×2 (09:41→20:47)
[2017-05-09] MEDS: NORCO 10-325 PO SCH ×3 (09:41→20:47)
[2017-05-09] MEDS: DALIRESP PO SCH (09:41)
[2017-05-09] MEDS: LEVAQUIN 500 MG in PREMIX 100 ML D5W 1 BAG IV SCH (09:42)
[2017-05-09] MEDS: SODIUM CHLORIDE 1,000 ML IV SCH (09:55)
[2017-05-09] MEDS ORDERED: KLONOPIN PO STA (10:06)
--- NOTE | 2017-05-09 11:01 | PCM.PROG ---
Attending Provider: ATTENDING PROVIDER: Dr. TRUNG BOOGIE This patient is seen with Radha Garvey, Nurse Practitioner. DATE OF SERVICE: 05/09/17 SUBJECTIVE: This 66 year old WHITE/ M was hospitalized 05/07/17. The patient is lying in bed alert. He had just gotten up to use the bathroom. 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 Lincoln. He is still coughing and short of breath. REVIEW OF SYSTEMS: CONSTITUTIONAL: Positive for weakness. No night sweats. No fever or chills. HEENT: Eyes: No visual changes. No eye pain. No eye discharge. ENT: No runny nose. No epistaxis. No sinus pain. No odynophagia. No congestion. RESPIRATORY: Positive for cough and congestion. No hemoptysis. Positive for shortness of breath. CARDIOVASCULAR: No angina symptoms. No CHF symptoms. No atypical chest pain for CAD. No palpitations. No orthopnea.. GASTROINTESTINAL: No abdominal pain. No nausea or vomiting. No diarrhea or constipation. No hematemesis. No hematochezia. GENITOURINARY: No urgency. No frequency. No dysuria. No hematuria. No obstructive symptoms. No discharge. No pain. No significant abnormal bleeding. MUSCULOSKELETAL: No musculoskeletal pain; no joint swelling. NEUROLOGICAL: Awake, alert, oriented to time, place and person. No headache. No neck pain. No syncope. No seizures. No dizziness. PSYCHIATRIC: Not anxious. No depression. No suicidal thoughts. No homicidal thoughts. SKIN: No rash. No lesions. No wounds. ENDOCRINE: No unexplained weight loss. No weight gain. HEMATOLOGIC/LYMPHATIC: No anemia. No purpura. No petechiae. No prolonged or excessive bleeding. No palpable lymph nodes. PHYSICAL EXAMINATION: GENERAL: The patient is awake, alert and oriented, lying/sitting in bed in no distress. VITAL SIGNS: Temperature 97.6 F, Pulse 80, Respiratory Rate 20, BP 104/68, Pulse Ox 95% HEENT: Head normocephalic, atraumatic. Eyes: Extraocular muscles are intact. Pupils are equal, round and reactive to light and accommodation. Ears: No lesions. Nose appeared normal. Throat: No exudate or erythema. NECK: Supple. No JVD, no carotid bruit. No lymphadenopathy or thyromegaly. LUNGS: Bilateral inspiratory and expiratory wheeze. Percussion note normal. Chest symmetrical. HEART: S1, S2, no S3. No murmurs. No cyanosis or clubbing. No ascites. Pulses: Dorsalis pedis and posterior tibial pulses +1 to +2 both sides. ABDOMEN: Soft. Non-tender. Bowel sounds active. No CVA tenderness. No mass felt. EXTREMITIES: No edema. Full range of motion of all extremities, equal. NEUROLOGIC: No focal deficit. Cranial nerves II through XII are grossly intact. No headache, no double vision or headache. SKIN: Not dry. Intact. Turgor-normal. LYMPHATIC: No palpable lymph nodes/no lymphedema. MUSCULOSKELETAL: Normal joints with no swelling. Muscle tone is normal. LAB REVIEW: 05/09/17 04:24 05/09/17 04:24 05/09/17 04:24: Sodium 132 L, Potassium 3.8, Chloride 96 L, Carbon Dioxide 29, Anion Gap 10.8, BUN 25 H, Creatinine 1.43 H D, Estimated GFR (MDRD) 50.00, BUN/ Creatinine Ratio 17.48, Glucose 120 H, Calcium 8.4, Total Bilirubin 0.5, AST 20 , ALT 14, Alkaline Phosphatase 69, Total Protein 5.5 L, Albumin 2.4 L, Globulin 3.1, Albumin/Globulin Ratio 0.77 05/09/17 04:24: WBC 15.80 H, RBC 3.70 L, Hgb 11.0 L, Hct 33.6 L, MCV 90.8, MCH 29.7, MCHC 32.7, RDW Coeff of Charisse 14.0, Plt Count 261, Immature Gran % (Auto) 0.6, Neut % (Auto) 85.8, Lymph % (Auto) 9.9 L, [place] % (Auto) 3.6, Eos % (Auto) 0.0, Baso % (Auto) 0.1, Immature Gran # (Auto) 0.1, Neut # 13.6 H, Lymph # 1.6, [place] # 0.6, Eos # 0.0, Baso # 0.0 ASSESSMENT: 1. Influenza A 2. Acute bronchitis 3. Dehydration 4. Chronic kidney disease 5. COPD 6. Esophageal cancer, sees Dr. Lincoln PLAN: 1. Klonopin 1 mg at bedtime Plan and coordination of the patient's care discussed in the presence of Threshing Machine Operator and nurse. CONDITION: Stable SCRIBED BY: DAVID MARTINEZ Sharepoint Developer scribed while in presence of service performed by Dr. Boogie/Radha Garvey APRN on 05/09/17 ([id number])
[2017-05-09] MEDS: KLONOPIN PO SCH ×2 (15:13→20:47)
--- NOTE | 2017-05-09 15:48 | HP ---
DATE OF SERVICE: 05/07/16 REASON FOR HOSPITALIZATION/HISTORY OF PRESENT ILLNESS: Hospital followup. Coughing and congestion times three days with yellowish sputum. "I have never felt this bad." Feeling bad with shortness of breath. No PND. No Orthopnea. Pleuritic pain with coughing, right sided. 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 The patient is being referred to [place]. The patient was earlier seen by classroom teacher and surgeons at two places, Dr. Barney and Dr. Kurtz and they explained to him that they don' t do this procedure where they resect out the esophagus that frequently so they recommended him to be evaluated at a center where this is done frequently like [facility] or [facility]. The patient's other problems are prostatism, COPD, atrial arrhythmias, reflux symptoms, generalized osteoarthritis. REVIEW OF SYSTEMS: CONSTITUTIONAL: No fever, Fatigue. HEENT: Sinus drainage, no sore throat. RESPIRATORY: Cough hard, no congestion. CARDIOVASCULAR: Atypical chest pain for coronary artery disease, pleuritic type. No angina, CHF symptoms, palpitations. Shortness of breath. GASTROINTESTINAL: No melena or abdominal pain. No GERD. GENITOURINARY: No hematuria, no prostatism, no polyuria. INSTRUMENTAL MUSIC TEACHER: No blackout, no dizziness, no headache, no double vision. Unable to walk. MUSCULOSKELETAL: Osteoarthritis pain, no joint swelling. ENDOCRINE: No weight loss, no weight gain. SKIN: Not dry, no rash. PSYCHIATRIC: Anxious, no depression, no suicidal thoughts, no homicidal thoughts. SOCIAL HISTORY: Marital Status: Lives with spouse. Alcohol Usage: No. Tobacco Usage: Quit. MEDICATIONS: Sotalol 80mg twice a day Protonix 40mg twice a day Clonazepam 0.5mg three times a day Symbicort 160/4.5 Flexeril 10mg twice a day Sigel 10-325mg three times a day Daliresp 500mg Flomax 0.4mg DUO NEBS BREO inhaler PRN Carafate 1gram four times a day ProAir HFA Phenergan PRN Ventolin inhaler ALLERGIES: Penicillin PHYSICAL EXAMINATION: V/S: Pulse 100, blood pressure 100/62, oxygen saturation 95%. GENERAL APPEARANCE: Oriented times three. HEENT: Normal. Skin Dry. NECK: No JVP, no bruits. RESPIRATORY: Decreased shortness of breath, mild wheezing. CARDIOVASCULAR: S1, S2, no S3, no murmurs. No cyanosis, clubbing. No ascites. GI/ABDOMEN: No tenderness. Bowel sounds are active. EXTREMITIES: edema, pulses +1, equal. INSTRUMENTAL MUSIC TEACHER: Deep tendon reflexes, sensory, motor and gait all normal. RECTAL: Colonoscopy and EGD 01/19 Dr. Torrez. /PELVIC/PROSTATE: Dr. Crawford 09-18 ( 4.0) . ASSESSMENT: 1. Acute bronchitis/pneumonitis 2. Dehydration 3. Pleuritic pain 4. Esophageal adenocarcinoma 5. PSA 6. Chronic kidney disease, stage 2 7. Hypertension 8. Leukocytosis 9. PAD 10.COPD 11.GERD 12.History SVT 13.Easley's esophagus 14.Appendectomy PLAN: 1. Admit regular 2. Routine telemetry orders 3. Skip Cardiac markers 4. Sputum for culture and sensitivity 5. Blood for culture and sensitivity 6. 1000cc D5 1/2 normal saline 12 hours 7. Rapid Flu A&B 8. Levaquin 500mg IV Q 24 hours 9. Solu-Cortef 125mg IV now and Q 8 hours 10.Xopenex Q 6 hours 11.Toradol 30mg IV now and Q 8 hours 12.Tussionex 1 tsp Q now and twice a day 13.Daily CBC and CMP TIME SPENT: More than 70 minutes. MTDD
[2017-05-10] MEDS: XOPENEX 1.25 MG NEB SCH ×4 (03:55→23:03)
[2017-05-10] MEDS: CARAFATE PO SCH ×4 (05:48→22:34)
[2017-05-10] MEDS: PROTONIX PO SCH ×2 (05:48→17:24)
[2017-05-10] MEDS: TORADOL IVP SCH ×3 (05:48→20:51)
[2017-05-10] MEDS: SOLU-CORTEF 250 MG IVP SCH ×3 (05:49→20:51)
[2017-05-10] MEDS: KLONOPIN PO SCH ×3 (09:17→22:35)
[2017-05-10] MEDS: TUSSIONEX PO SCH ×2 (09:17→22:34)
[2017-05-10] MEDS: FLEXERIL PO SCH ×2 (09:17→22:35)
[2017-05-10] MEDS: LEVAQUIN 500 MG in PREMIX 100 ML D5W 1 BAG IV SCH (09:17)
[2017-05-10] MEDS: TAMIFLU PO SCH ×2 (09:18→22:35)
[2017-05-10] MEDS: NORCO 10-325 PO SCH ×3 (09:18→22:34)
[2017-05-10] MEDS: DALIRESP PO SCH (09:18)
[2017-05-10] MEDS: SODIUM CHLORIDE 1,000 ML IV SCH (09:19)
[2017-05-10] MEDS: SYMBICORT 160-4.5 MCG INHALER IH SCH ×2 (09:19→22:34)
[2017-05-11] MEDS: XOPENEX 1.25 MG NEB SCH ×4 (04:46→22:31)
[2017-05-11] MEDS: SODIUM CHLORIDE 1,000 ML IV SCH (04:51)
[2017-05-11] MEDS: SOLU-CORTEF 250 MG IVP SCH ×3 (04:53→20:28)
[2017-05-11] MEDS: TORADOL IVP SCH ×3 (04:57→20:28)
[2017-05-11] MEDS: CARAFATE PO SCH ×4 (06:00→20:27)
[2017-05-11] MEDS ORDERED: DEXTROSE 5%-1/2NS IV SOLUTION 1,000 ML IV SCH (06:00)
[2017-05-11] MEDS: PROTONIX IV IVP SCH ×2 (06:02→17:24)
[2017-05-11] MEDS: KLONOPIN PO SCH ×3 (08:23→20:28)
[2017-05-11] MEDS: LEVAQUIN 500 MG in PREMIX 100 ML D5W 1 BAG IV SCH (08:23)
[2017-05-11] MEDS: FLEXERIL PO SCH ×2 (08:23→20:29)
[2017-05-11] MEDS: NORCO 10-325 PO SCH ×3 (08:24→20:28)
[2017-05-11] MEDS: DALIRESP PO SCH (08:24)
[2017-05-11] MEDS: TAMIFLU PO SCH ×2 (08:25→20:29)
[2017-05-11] MEDS: SYMBICORT 160-4.5 MCG INHALER IH SCH ×2 (08:29→20:27)
[2017-05-11] MEDS: TUSSIONEX PO SCH ×2 (08:29→20:29)
[2017-05-11] MEDS ORDERED: PROTONIX IV IVP SCH (09:00)
[2017-05-11] MEDS ORDERED: LASIX IVP STA (09:43)
[2017-05-11] MEDS: MORPHINE 2 MG/ML SYRINGE IVP PRN (10:07)
[2017-05-11] MEDS ORDERED: LASIX IVP ONE (13:00)
[2017-05-11] MEDS ORDERED: MORPHINE 2 MG/ML SYRINGE IVP ONE (13:00)
[2017-05-12] MEDS: MORPHINE 2 MG/ML SYRINGE IVP PRN
[2017-05-12] MEDS: TORADOL IVP SCH ×3 (04:14→20:08)
[2017-05-12] MEDS: SOLU-CORTEF 250 MG IVP SCH ×3 (04:14→20:09)
[2017-05-12] MEDS: PROTONIX IV IVP SCH ×2 (05:29→17:39)
[2017-05-12] MEDS: CARAFATE PO SCH ×4 (05:29→20:08)
[2017-05-12] MEDS: XOPENEX 1.25 MG NEB SCH ×4 (05:39→23:48)
[2017-05-12] MEDS: LEVAQUIN 500 MG in PREMIX 100 ML D5W 1 BAG IV SCH (09:08)
[2017-05-12] MEDS: KLONOPIN PO SCH ×3 (09:08→20:08)
[2017-05-12] MEDS: NORCO 10-325 PO SCH ×3 (09:08→20:08)
[2017-05-12] MEDS: DALIRESP PO SCH (09:09)
[2017-05-12] MEDS: FLEXERIL PO SCH ×2 (09:09→20:08)
[2017-05-12] MEDS: TAMIFLU PO SCH (09:09)
[2017-05-12] MEDS: TUSSIONEX PO SCH ×2 (09:12→20:08)
--- NOTE | 2017-05-12 10:24 | PCM.PROG ---
Attending Provider: ATTENDING PROVIDER: Dr. TRUNG BARROSO DATE OF SERVICE: 05/12/17 SUBJECTIVE: This 66 year old WHITE/ M was hospitalized 05/07/17. The patient is hospitalized with Influenza A positive and bronchitis. He has esophageal carcinoma. The patient's condition worsened yesterday with fluid overload, possibility of coffee ground emesis with hemoglobin dropping from 13 to 8.4. The patient was given 2 units of PRBCs. Anemia was symptomatic with shortness of breath, CHF and fatigue. With the 2 units of PRBCs hemoglobin has gone up to 9.4 with HCT of 28.1. BUN 59 with creatinine stable at 1.6. He is feeling 100% better. Appetite is normal. REVIEW OF SYSTEMS: CONSTITUTIONAL: No night sweats. No fatigue, malaise, lethargy. No fever or chills. HEENT: Eyes: No visual changes. No eye pain. No eye discharge. ENT: No runny nose. No epistaxis. No sinus pain. No odynophagia. No congestion. RESPIRATORY: No cough, no congestion. No hemoptysis. No shortness of breath. CARDIOVASCULAR: No angina symptoms. No CHF symptoms. No atypical chest pain for CAD. No palpitations. No orthopnea.. GASTROINTESTINAL: No abdominal pain. No nausea or vomiting. No diarrhea or constipation. No hematemesis. No hematochezia. GENITOURINARY: No urgency. No frequency. No dysuria. No hematuria. No obstructive symptoms. No discharge. No pain. No significant abnormal bleeding. MUSCULOSKELETAL: No musculoskeletal pain; no joint swelling. NEUROLOGICAL: Awake, alert, oriented to time, place and person. No headache. No neck pain. No syncope. No seizures. No dizziness. PSYCHIATRIC: Not anxious. No depression. No suicidal thoughts. No homicidal thoughts. SKIN: No rash. No lesions. No wounds. ENDOCRINE: No unexplained weight loss. No weight gain. HEMATOLOGIC/LYMPHATIC: No anemia. No purpura. No petechiae. No prolonged or excessive bleeding. No palpable lymph nodes. PHYSICAL EXAMINATION: GENERAL: The patient is awake, alert and oriented, lying in bed in no distress. VITAL SIGNS: Temperature 97.3 F, Pulse 92, Respiratory Rate 18, BP 114/64, Pulse Ox 95% HEENT: Head normocephalic, atraumatic. Eyes: Extraocular muscles are intact. Pupils are equal, round and reactive to light and accommodation. Ears: No lesions. Nose appeared normal. Throat: No exudate or erythema. NECK: Supple. No JVD, no carotid bruit. No lymphadenopathy or thyromegaly. LUNGS: Decreased breath sounds clear; no wheezing at all. Percussion note normal. Chest symmetrical. HEART: S1, S2, no S3. No murmurs. No cyanosis or clubbing. No ascites. Pulses: Dorsalis pedis and posterior tibial pulses +1 to +2 both sides. ABDOMEN: Soft. Non-tender. Bowel sounds active. No CVA tenderness. No mass felt. EXTREMITIES: No edema. Full range of motion of all extremities, equal. NEUROLOGIC: No focal deficit. Cranial nerves II through XII are grossly intact. No headache, no double vision or headache. SKIN: Not dry. Intact. Turgor-normal. LYMPHATIC: No palpable lymph nodes/no lymphedema. MUSCULOSKELETAL: Normal joints with no swelling. Muscle tone is normal. LAB REVIEW: 05/12/17 05:00 05/12/17 05:00 05/12/17 05:00: Sodium 135 L, Potassium 3.9, Chloride 102, Carbon Dioxide 27, Anion Gap 9.9, BUN 59 H, Creatinine 1.68 H, Estimated GFR (MDRD) 41.00, BUN/ Creatinine Ratio 35.11, Glucose 127 H, Calcium 9.0, Total Bilirubin 0.7, AST 16 , ALT 18, Alkaline Phosphatase 64, Total Protein 5.3 L, Albumin 2.4 L, Globulin 2.9, Albumin/Globulin Ratio 0.83 05/12/17 05:00: WBC 34.30 H, RBC 3.09 L, Hgb 9.4 L, Hct 28.1 L, MCV 90.9, MCH 30.4, MCHC 33.5, RDW Coeff of Charisse 14.6, Plt Count 280, Neutrophils % (Manual) 90.0 H, Lymphocytes % (Manual) 9.0 L, Monocytes % (Manual) 1.0, Anisocytosis Not present 05/11/17 20:20: B-Natriuretic Peptide 43 05/11/17 20:20: Hgb 9.6 L, Hct 28.8 L 05/11/17 16:26: Puncture Site Rr, O2 Saturation 93.0 L, ABG pH 7.357, ABG pCO2 40.8, ABG pO2 68.0 L, ABG HCO3 22.9, ABG Total CO2 24, ABG Base Excess -3 L, Michael Test +, O2 Delivery Device Nc, Oxygen Liter Flow 4.00, FiO2 % 36.0 05/11/17 05:55: Blood Type O POSITIVE, Antibody Screen Negative, Crossmatch (AHG ) See Detail ASSESSMENT: 1. Acute respiratory failure resolved 2. Pulmonary edema from fluid overload resolved 3. GFR improving 4, Hemoglobin and hematocrit stable with no evidence of active GI bleed PLAN: 1. Encouraged to drink fluids 2. Encourage the patient to eat and walk around 3. ABG on room air 4. Leukocytosis likely from combination of steroids, fluid overload and carcinoma of the esophagus and probably infection 5. The patient wants to go home. He is scheduled for chemotherapy today but canceled as he is not medically stable. Radiation is scheduled and will leavel that up to the patient. The patient is reluctant for chemotherapy and radiation. 6. He again reiterated that he is DNI. Plan and coordination of the patient's care discussed in the presence of Rehab Aide and nurse. CONDITION: Stable SCRIBED BY: DAVID MARTINEZ, Rn [facility] scribed while in presence of service performed by Dr. TRUNG BARROSO on 05/12/17 ([id number])
[2017-05-12] MEDS: SYMBICORT 160-4.5 MCG INHALER IH SCH ×2 (11:07→20:07)
--- NOTE | 2017-05-12 11:42 | DI ---
EXAM: CHEST FRONTAL VIEW HISTORY: Chest congestion. COMPARISON: 04/28/2017 FINDINGS: Prominent heart size is stable. Aortic ectasia and atherosclerosis. Port catheter has be en removed. No obvious vascular congestion or interstitial edema. There is no visible pleural fluid , consolidated pneumonia or pneumothorax. IMPRESSION: Limited portable exam reveals no obvious acute process.
[2017-05-13] MEDS: XOPENEX 1.25 MG NEB SCH ×4 (03:55→23:30)
[2017-05-13] MEDS: CARAFATE PO SCH ×4 (05:43→21:20)
[2017-05-13] MEDS: SOLU-CORTEF 250 MG IVP SCH ×3 (05:44→21:21)
[2017-05-13] MEDS: PROTONIX IV IVP SCH ×2 (05:44→18:08)
[2017-05-13] MEDS: TORADOL IVP SCH ×3 (05:44→21:21)
--- NOTE | 2017-05-13 08:23 | ECHO2D ---
Date of Exam: 05/11/17 Ordering Physician: TRUNG BARROSO Room #: 121 Reason for Echo: CONGESTIVE HEART FAILURE, SOB, RESPIRATORY FAILURE M-Mode Normal Adult Results LV Dimensions Normal Adult Results AoV Opening excursions >1.6 >1.6 LVEDD-base- 3.5-5.8 4.3 Ao root dimensions 2.0-3.7 3.6 LVESD-base- 3.1-4.6 L. Atrium dimensions 1.9-3.8 4.0 Post. Wall thickness 0.8-1.1 1.9 IV septum (thickness) 0.7-1.2 1.5 Post. Wall excursion 0.72-1.3 NORMAL Septal motion NORMAL Systolic motion R. Ventricular cavity 1.5-2.0 3.0 LVEF 60% 67% Paradoxical septal wall motion NORMAL 2-D : NORMAL VALVES--NORMAL LEFT VENTRICULAR CONTRACTILITY--NO EFFUSION, NO THROMBUS, ENLARGED LEFT ATRIAL CAVITY M-MODE: MV: NORMAL AV: NORMAL TV: NORMAL PV: CHAMBER SIZE: BORDERLINE LEFT ATRIAL CAVITY, ENLARGED RIGHT VENTRICLE CAVITY WALL MOTION: NORMAL PERICARDIUM: NORMAL INTERPRETATION: 1. DIFFICULT STUDY--BODY HABITUS 2. LEFT VENTRICULAR HYPERTROPHY 3. NORMAL LEFT VENTRICULAR CONTRACTILITY 4. ENLARGED RIGHT VENTRICLE, BORDERLINE LEFT ATRIAL CAVITY MTDD
--- NOTE | 2017-05-13 09:43 | PCM.PROG ---
Attending Provider: ATTENDING PROVIDER: Dr. TRUNG BOOGIE This patient is seen with Radha Garvey, Nurse Practitioner. DATE OF SERVICE: 05/13/17 SUBJECTIVE: This 66 year old WHITE/ M was hospitalized 05/07/17. The patient is lying in bed, alert. ABG done on room air shows respiratory acidosis partially compensated with some c02 retention. The patient has PVCs and with a little exertion he gets tachycardic. He has severe chronic lung disease and is on steroids q.8 125 mg. Hemoglobin and hematocrit have dropped again so he has chronic GI bleed. Will monitor CBC and CMP. Will call Dr. Torrez to set up appointment for him to be seen. REVIEW OF SYSTEMS: CONSTITUTIONAL: No night sweats. No fatigue, malaise, lethargy. No fever or chills. HEENT: Eyes: No visual changes. No eye pain. No eye discharge. ENT: No runny nose. No epistaxis. No sinus pain. No odynophagia. No congestion. RESPIRATORY: Positive for cough and congestion. No hemoptysis. No shortness of breath. CARDIOVASCULAR: No angina symptoms. No CHF symptoms. No atypical chest pain for CAD. No palpitations. No orthopnea.. GASTROINTESTINAL: No abdominal pain. No nausea or vomiting. No diarrhea or constipation. No hematemesis. No hematochezia. GENITOURINARY: No urgency. No frequency. No dysuria. No hematuria. No obstructive symptoms. No discharge. No pain. No significant abnormal bleeding. MUSCULOSKELETAL: No musculoskeletal pain; no joint swelling. NEUROLOGICAL: Awake, alert, oriented to time, place and person. No headache. No neck pain. No syncope. No seizures. No dizziness. PSYCHIATRIC: Not anxious. No depression. No suicidal thoughts. No homicidal thoughts. SKIN: No rash. No lesions. No wounds. ENDOCRINE: No unexplained weight loss. No weight gain. HEMATOLOGIC/LYMPHATIC: No anemia. No purpura. No petechiae. No prolonged or excessive bleeding. No palpable lymph nodes. PHYSICAL EXAMINATION: GENERAL: The patient is awake, alert and oriented, lying in bed in no distress. VITAL SIGNS: Temperature 97.3 F, Pulse 125, Respiratory Rate 19, BP 134/87, Pulse Ox 95% HEENT: Head normocephalic, atraumatic. Eyes: Extraocular muscles are intact. Pupils are equal, round and reactive to light and accommodation. Ears: No lesions. Nose appeared normal. Throat: No exudate or erythema. NECK: Supple. No JVD, no carotid bruit. No lymphadenopathy or thyromegaly. LUNGS: Clear to auscultation. Percussion note normal. Chest symmetrical. HEART: S1, S2, no S3. No murmurs. No cyanosis or clubbing. No ascites. Pulses: Dorsalis pedis and posterior tibial pulses +1 to +2 both sides. ABDOMEN: Soft. Non-tender. Bowel sounds active. No CVA tenderness. No mass felt. EXTREMITIES: No edema. Full range of motion of all extremities, equal. NEUROLOGIC: No focal deficit. Cranial nerves II through XII are grossly intact. No headache, no double vision or headache. SKIN: Not dry. Intact. Turgor-normal. LYMPHATIC: No palpable lymph nodes/no lymphedema. MUSCULOSKELETAL: Normal joints with no swelling. Muscle tone is normal. LAB REVIEW: 05/13/17 05:55 05/13/17 05:55 05/13/17 05:55: Sodium 135 L, Potassium 3.7, Chloride 102, Carbon Dioxide 27, Anion Gap 9.7, BUN 49 H, Creatinine 1.42 H, Estimated GFR (MDRD) 50.00, BUN/ Creatinine Ratio 34.50, Glucose 144 H, Calcium 9.0, Total Bilirubin 0.8, AST 25 , ALT 25, Alkaline Phosphatase 87, Total Protein 5.2 L, Albumin 2.2 L, Globulin 3.0, Albumin/Globulin Ratio 0.73 05/13/17 05:55: WBC 28.00 H D, RBC 2.89 L, Hgb 8.7 L, Hct 26.5 L, MCV 91.7, MCH 30.1, MCHC 32.8, RDW Coeff of Charisse 15.1 H, Plt Count 308, Immature Gran % (Auto) 1.8, Neut % (Auto) 89.7, Lymph % (Auto) 4.6 L, [place] % (Auto) 3.8, Eos % (Auto) 0.0, Baso % (Auto) 0.1, Immature Gran # (Auto) 0.5, Neut # 25.1 H, Lymph # 1.3, [place] # 1.1, Eos # 0.0, Baso # 0.0 05/12/17 09:20: Puncture Site L rad, O2 Saturation 79.0 L, ABG pH 7.335 L, ABG pCO2 47.2 H, ABG pO2 47.0 L*, ABG HCO3 25.2, ABG Total CO2 27, ABG Base Excess - 1, Michael Test +, FiO2 % 21.0 ASSESSMENT: 1. Acute respiratory failure resolved 2. Pulmonary edema from fluid overload resolved 3. GFR improving 4, Hemoglobin and hematocrit stable with no evidence of active GI bleed PLAN: 1. Betapace 40 mg b.i.d. and one now 2. Solu-Cortef q.12hr 3. Will schedule appointment with Dr. Torrez as outpatient for followup 4. Three step Plan and coordination of the patient's care discussed in the presence of Edger Hand and nurse. CONDITION: STABLE PROGNOSIS: POOR SCRIBED BY: DAVID MARTINEZ [employer] scribed while in presence of service performed by Dr. Boogie/Radha Garvey APRN on 05/13/17 ([id number])
[2017-05-13] MEDS: KLONOPIN PO SCH ×3 (09:49→21:21)
[2017-05-13] MEDS: NORCO 10-325 PO SCH ×3 (09:50→21:21)
[2017-05-13] MEDS: TUSSIONEX PO SCH ×2 (09:50→21:20)
[2017-05-13] MEDS: BETAPACE PO SCH ×2 (09:50→21:21)
[2017-05-13] MEDS: DALIRESP PO SCH (09:51)
[2017-05-13] MEDS: FLEXERIL PO SCH ×2 (09:52→21:20)
[2017-05-13] MEDS: SYMBICORT 160-4.5 MCG INHALER IH SCH ×2 (09:53→21:20)
[2017-05-13] MEDS: LEVAQUIN 500 MG in PREMIX 100 ML D5W 1 BAG IV SCH (09:54)
--- NOTE | 2017-05-13 11:51 | PN ---
DATE OF SERVICE: 05/11/17 SUBJECTIVE: 66 year old white male was hospitalized with influenza positive with acute pneumonitis, bronchitis and dehydration. The patient's condition has steadily improved for first couple of days and he felt a lot better. Past 24 hours the patient's condition seems to have deteriorated in a way that he was short of breath on minimal exertion. Last night he threw up black coffee ground vomitus. According to the he had black stool yesterday which they never reported to anybody. The patient's BUN was reported as high this morning to me at approximately 5:36am a drop in the hgb to 8.4 on admission the patient's hgb was 13 which has steadily been decreasing and that was thinking hemodilution. In any case this morning on further examination it was quite obvious that patient was in fluid overload. Definitely he had coffee ground and evidence of GI bleed for past 24 hours or more. The patient has been Protonix and Carafate but with the history of esophageal cancer according to the he has been having these type of vomiting and black stools off and on for past four to six months. REVIEW OF SYSTEMS: CONSTITUTIONAL: No night sweats. Fatigue. No fever or chills. HEENT: Eyes: No visual changes. No eye pain. No eye discharge. ENT: No runny nose. No epistaxis. No sinus pain. No sore throat. No odynophagia. No congestion. RESPIRATORY: No cough, no congestion. No hemoptysis. Shortness of breath on minimal exertion. CARDIOVASCULAR: No angina symptoms. No CHF symptoms. No atypical chest pain for CAD. No palpitations. Maybe orthopnea. No real PND. GASTROINTESTINAL: No abdominal pain. Vomitus with coffee ground melena. No diarrhea or constipation. No hematemesis. No hematochezia. Appetite is real good. He had a good breakfast this morning and also had good supper last night. GENITOURINARY: No urgency. No frequency. No dysuria. No hematuria. No obstructive symptoms. No discharge. No pain. No significant abnormal bleeding. MUSCULOSKELETAL: No musculoskeletal pain; no joint swelling. NEUROLOGICAL: No headache. No neck pain. No syncope. No seizures. No dizziness. PSYCHIATRIC: Not anxious. No depression. No suicidal thoughts. No homicidal thoughts. SKIN: No rash. No lesions. No wounds. ENDOCRINE: No unexplained weight loss. No weight gain. HEMATOLOGIC/LYMPHATIC: No anemia. No purpura. No petechiae. No prolonged or excessive bleeding. No palpable lymph nodes. PHYSICAL EXAMINATION: GENERAL: The patient is oriented to time, place and person. VITAL SIGNS: By the time I saw him the patient was comfortable and his respiratory rate was 14 per minute with pulse of 110 irregular, temperature was normal with blood pressure 110 systolic with oximetry of 96% with 3 liters. HEENT: Head normocephalic, atraumatic. Eyes: Extraocular muscles are intact. Pupils are equal, round and reactive to light and accommodation. Ears: No lesions. Nose appeared normal. Throat: No exudate or erythema. NECK: Supple. No JVD, no carotid bruit. No lymphadenopathy or thyromegaly. LUNGS: Good air entry, no wheezing noted. Decreased breath sounds. Percussion note normal. Chest symmetrical. HEART: S1, S2, no S3. No murmurs. No cyanosis or clubbing. No ascites. Pulses: Dorsalis pedis and posterior tibial pulses +1 to +2 both sides. ABDOMEN: Soft. Nontender. Bowel sounds active. No CVA tenderness. No mass felt. EXTREMITIES: No edema. Full range of motion of all extremities, equal. NEUROLOGIC: No focal deficit. Cranial nerves II through XII are grossly intact. No headache, no double vision or headache. SKIN: Not dry. Intact. Turgor - normal. LYMPHATIC: No palpable lymph nodes/no lymphedema. MUSCULOSKELETAL: Normal joints with no swelling. Muscle tone is normal. LABS: Hgb 8.4, hct 25, WBC 35,000 normal differential, creatinine 1.8, BUN 74, potassium 3.9. ASSESSMENT: 1. Fluid overload with CHF 2. Severe chronic lung disease with bronchitis 3. GI bleeding with coffee ground/Acute gastritis, could be bleeding from esophageal cancer site 5. Obesity 6. Severe chronic lung disease 7. Renal azotemia, BUN could be from the blood in the gut and also dehydration. PLAN: 1. Given Morphine Sulfate 2mg 2. 40mg Lasix IV already given twice 3. IV fluids has been stopped 4. 1 unit of packed red cells already given and the second one is going to be started soon 5. WBC could be up from steroids, also from CHF, GI bleed and possibility of aspiration 6. I mentioned the possibility of aspiration because the patient has been coughing up blackish looking sputum. He has severe reflux from esophageal cancer and reflux on a continuous basis with chronic lung disease for number of years with history of smoking. 7. Continue antibiotics 8. IV Lasix intermittently 9. The patient had good urine output and now we will put Dill Catheter because he has requesting that he gets extremely short of breath and he requires help going to the bathroom. 10.Monitor oximetry. The patient's respiratory status has improved according to the nurse. Also the patient respiratory status has improved and he hasn't been wheezing and he has been feeling better. The patient had a good lunch and he is talking normally with no distress. There is no evidence of active GI bleed. The is in the room and discussed all the medical problems. Some of them are practically endstage like chronic lung disease. Also esophageal cancer which seems to be inoperable and has been rejected by three surgeons and now he is being scheduled for chemotherapy tomorrow and radiation two days from now. The patient is very reluctant. He is not stable enough to have any procedures done at present time according to my clinical judgement. The patient needs to be stabilized before they can even do an EGD but given the EGD in a normal status the patient is refusing any procedures at present time. The patient says that he is not going to have chemotherapy or radiation. He is too sick to have anything done at present time. According to the the patient was reluctant about both to begin with. The patient wants to be comfortable. The was explained about all his medical problems and she wants no intubation or respirator. In fact the patient' s even talked about Hospice. I told her that's probably too soon to talk about it but in any case we will consider that incase the patient's condition deteriorates further. The patient also doesn't want any intubation or respirator. The patient's condition it stabilizing. PROGNOSIS: Guarded CONDITION: Critical TIME SPENT: More than 30 minutes. This note was dictated on the findings based on 2:00pm. Physical exam that was done the third time today. The patient had echocardiogram done which showed normal LV contractility with LVH, enlarged LA cavity, RV cavity is markedly enlarged indicating pulmonary hypertension, right ventricular fluid overload. Initially the patient had sinus tachycardia with PAC's and PVC's with rate of 150 per minute. When I checked him last time his heart rate had slowed down to 100 per minute with occasional PVC. Plan and coordination of the patient's care discussed in the presence of nurse. KATINA
--- NOTE | 2017-05-13 15:00 | PN ---
DATE OF SERVICE: 05/10/17 SUBJECTIVE: 66 year old white male was hospitalized with acute bronchitis, pneumonitis and positive influenza. The patient this morning went to the bathroom and got extremely short of breath and panicked. After a couple of minutes he settled down. REVIEW OF SYSTEMS: CONSTITUTIONAL: No night sweats. No fatigue, malaise, lethargy. No fever or chills. HEENT: Eyes: No visual changes. No eye pain. No eye discharge. ENT: No runny nose. No epistaxis. No sinus pain. No sore throat. No odynophagia. No congestion. RESPIRATORY: No cough, no congestion. No hemoptysis. No shortness of breath. CARDIOVASCULAR: No angina symptoms. No CHF symptoms. No atypical chest pain for CAD. No palpitations. No orthopnea. No PND. GASTROINTESTINAL: No abdominal pain. No nausea or vomiting. No diarrhea or constipation. No hematemesis. No hematochezia. The patient has esophageal CA. Appetite has improved some. GENITOURINARY: No urgency. No frequency. No dysuria. No hematuria. No obstructive symptoms. No discharge. No pain. No significant abnormal bleeding. MUSCULOSKELETAL: No musculoskeletal pain; no joint swelling. Gaining strength but still weak and short of breath. NEUROLOGICAL: No headache. No neck pain. No syncope. No seizures. No dizziness. PSYCHIATRIC: Not anxious. No depression. No suicidal thoughts. No homicidal thoughts. SKIN: No rash. No lesions. No wounds. ENDOCRINE: No unexplained weight loss. No weight gain. HEMATOLOGIC/LYMPHATIC: No anemia. No purpura. No petechiae. No prolonged or excessive bleeding. No palpable lymph nodes. PHYSICAL EXAMINATION: VITAL SIGNS: Temperature 97.8, pulse 100, respiratory 20, blood pressure 125/ 74 and pulse ox 94%. HEENT: Head normocephalic, atraumatic. Eyes: Extraocular muscles are intact. Pupils are equal, round and reactive to light and accommodation. Ears: No lesions. Nose appeared normal. Throat: No exudate or erythema. NECK: Supple. No JVD, no carotid bruit. No lymphadenopathy or thyromegaly. LUNGS: Decreased breath sounds but clear to auscultation. Percussion note normal. Chest symmetrical. HEART: S1, S2, no S3. No murmurs. No cyanosis or clubbing. No ascites. Pulses: Dorsalis pedis and posterior tibial pulses +1 to +2 both sides. ABDOMEN: Soft. Nontender. Bowel sounds active. No CVA tenderness. No mass felt. EXTREMITIES: No edema. Full range of motion of all extremities, equal. NEUROLOGIC: No focal deficit. Cranial nerves II through XII are grossly intact. No headache, no double vision or headache. SKIN: Not dry. Intact. Turgor - normal. LYMPHATIC: No palpable lymph nodes/no lymphedema. MUSCULOSKELETAL: Normal joints with no swelling. Muscle tone is normal. ASSESSMENT: 1. Acute bronchitis/pneumonitis, resolving 2. Influenza resolving 3. Severe chronic lung disease 4. Chronic kidney disease with renal azotemia PLAN: 1. Continue steroids, antibiotics, NEBS treatment CONDITION: Stable, Improving. It is to be noted that the patient's basic lungs are so bad that when he went to [place] at the Gastrothoracic surgeon declined to do surgery because of Severe chronic lung disease. The patient was also evaluated at [facility] [place] by Dr. Barney and at [facility] by Dr. Kurtz and they also declined because of this high risk for his lung problems. TIME SPENT: More than 30 minutes. Plan and coordination of the patient's care discussed in the presence of nurse. KATINA
[2017-05-14] MEDS: XOPENEX 1.25 MG NEB SCH ×2 (03:50→11:23)
[2017-05-14] MEDS: CARAFATE PO SCH ×2 (05:39→11:28)
[2017-05-14] MEDS: PROTONIX IV IVP SCH (05:39)
[2017-05-14] MEDS: TORADOL IVP SCH ×2 (05:40→14:25)
[2017-05-14] MEDS: SYMBICORT 160-4.5 MCG INHALER IH SCH (08:29)
[2017-05-14] MEDS: TUSSIONEX PO SCH (08:29)
[2017-05-14] MEDS: FLEXERIL PO SCH (08:30)
[2017-05-14] MEDS: BETAPACE PO SCH (08:30)
[2017-05-14] MEDS: KLONOPIN PO SCH ×2 (08:30→13:51)
[2017-05-14] MEDS: NORCO 10-325 PO SCH (08:31)
[2017-05-14] MEDS: DALIRESP PO SCH (08:31)
[2017-05-14] MEDS: LEVAQUIN 500 MG in PREMIX 100 ML D5W 1 BAG IV SCH (08:31)
[2017-05-14] MEDS ORDERED: LASIX IVP STA (08:42)
[2017-05-14] MEDS: SOLU-CORTEF 250 MG IVP SCH (10:06)
--- NOTE | 2017-05-14 10:26 | PCM.PROG ---
Attending Provider: ATTENDING PROVIDER: Dr. TRUNG BARROSO DATE OF SERVICE: 05/14/17 SUBJECTIVE: This 66 year old WHITE/ M was hospitalized 05/07/17. The patient is hospitalized with flu type symptoms. He stabilized then after he went into fluid overload situation with evidence of GI bleed. He was given 2 units of PRBC. The patient is feeling a lot better and is talking better. REVIEW OF SYSTEMS: CONSTITUTIONAL: No night sweats. No fatigue, malaise, lethargy. No fever or chills. HEENT: Eyes: No visual changes. No eye pain. No eye discharge. ENT: No runny nose. No epistaxis. No sinus pain. No odynophagia. No congestion. RESPIRATORY: No cough, no congestion. No hemoptysis. No shortness of breath. CARDIOVASCULAR: No angina symptoms. No CHF symptoms. No atypical chest pain for CAD. No palpitations. No orthopnea.. GASTROINTESTINAL: Appetite improved. No abdominal pain. No nausea or vomiting. No diarrhea or constipation. No hematemesis. No hematochezia. GENITOURINARY: No urgency. No frequency. No dysuria. No hematuria. No obstructive symptoms. No discharge. No pain. No significant abnormal bleeding. MUSCULOSKELETAL: No musculoskeletal pain; no joint swelling. NEUROLOGICAL: Awake, alert, oriented to time, place and person. No headache. No neck pain. No syncope. No seizures. No dizziness. PSYCHIATRIC: Not anxious. No depression. No suicidal thoughts. No homicidal thoughts. SKIN: No rash. No lesions. No wounds. ENDOCRINE: No unexplained weight loss. No weight gain. HEMATOLOGIC/LYMPHATIC: No anemia. No purpura. No petechiae. No prolonged or excessive bleeding. No palpable lymph nodes. PHYSICAL EXAMINATION: GENERAL: The patient is awake, alert and oriented, lying in bed in no distress. VITAL SIGNS: Temperature 97.9 F, Pulse 122, Respiratory Rate 20, BP 105/80, Pulse Ox 96% HEENT: Head normocephalic, atraumatic. Eyes: Extraocular muscles are intact. Pupils are equal, round and reactive to light and accommodation. Ears: No lesions. Nose appeared normal. Throat: No exudate or erythema. NECK: Supple. No JVD, no carotid bruit. No lymphadenopathy or thyromegaly. LUNGS: Clear to auscultation with good air entry. Percussion note normal. Chest symmetrical. HEART: S1, S2, no S3. No murmurs. No cyanosis or clubbing. No ascites. Pulses: Dorsalis pedis and posterior tibial pulses +1 to +2 both sides. ABDOMEN: Soft. Non-tender. Bowel sounds active. No CVA tenderness. No mass felt. EXTREMITIES: Pitting edema +2 which is dependent or could be from cor pulmonale. Full range of motion of all extremities, equal. NEUROLOGIC: No focal deficit. Cranial nerves II through XII are grossly intact. No headache, no double vision or headache. SKIN: Not dry. Intact. Turgor-normal. LYMPHATIC: No palpable lymph nodes/no lymphedema. MUSCULOSKELETAL: Normal joints with no swelling. Muscle tone is normal. LAB REVIEW: 05/14/17 05:00 05/14/17 05:00 05/14/17 05:00: Sodium 136, Potassium 4.1, Chloride 103, Carbon Dioxide 29, Anion Gap 8.1, BUN 49 H, Creatinine 1.28 H, Estimated GFR (MDRD) 57.00, BUN/ Creatinine Ratio 38.28, Glucose 113, Calcium 9.8, Total Bilirubin 0.9, AST 27, ALT 29, Alkaline Phosphatase 80, Total Protein 5.3 L, Albumin 2.1 L, Globulin 3.2, Albumin/Globulin Ratio 0.66 05/14/17 05:00: WBC 25.65 H, RBC 2.85 L, Hgb 8.6 L, Hct 26.6 L, MCV 93.3, MCH 30.2, MCHC 32.3, RDW Coeff of Charisse 15.7 H, Plt Count 376, Immature Gran % (Auto) 3.7, Neut % (Auto) 85.5, Lymph % (Auto) 5.5 L, Martin % (Auto) 5.2, Eos % (Auto) 0.0, Baso % (Auto) 0.1, Immature Gran # (Auto) 1.0, Neut # 21.9 H, Lymph # 1.4, Martin # 1.3, Eos # 0.0, Baso # 0.0 05/13/17 14:01: Puncture Site Rr, O2 Saturation 87.0 L, ABG pH 7.367, ABG pCO2 44.1, ABG pO2 55.0 L*, ABG HCO3 25.3, ABG Total CO2 27, ABG Base Excess 0, Michael Test +, FiO2 % 21.0 ASSESSMENT: 1. Influenza positive with bronchitis/pneumonitis 2. Fluid overload 3. GI bleed 4. Cor pulmonale with leg edema 5. Severe chronic lung disease PLAN: 1. IV Lasix 20 mg today 2. Zaroxolyn 2.5 mg daily 3. The patient had renal azotemia which seems to be resolving. Appetite is improved. Respiratory status improved. 4. We already contacted Dr. Torrez for him to be seen. 5. The patient had chemo and radiation scheduled this week and was cancelled due to unstable medical condition, which has become more stable now. 6. Keep legs elevated Plan and coordination of the patient's care discussed in the presence of Rough And Truing Machine Operator and nurse. CONDITION: Stable SCRIBED BY: DAVID MARTINEZ Tattoo Designer scribed while in presence of service performed by Dr. TRUNG BARROSO on 05/14/17 ([id number])
--- NOTE | 2017-05-14 13:44 | CM.DICTOOL ---
ADMISSION: 05/07/17 12:26 DISCHARGE: 05/14/17 FINAL DIAGNOSIS INFLUENZA A/BRONCITIS/DEHDRATION COPD/CORPULMONALE ANEMIA-CHRONIC GI BLEED (GOT 2 UNITS OF PACKED RED CELLS) ESOPHAGEAL CANCER, NEWLY DIAGNOSED - DR. LI 01/2017 (DR. 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 CKD CARDIAC ARRHYTHMIA LEG EDEMA CHRONIC - DEPENDANT/CORPULMONALE ENLARGED PROSTATE APPENDECTOMY, 2012 HERNIA REPAIR, 2012 FORMER SMOKER, STOPPED 2012 LAST VITALS Temp Pulse Resp BP Pulse Ox 97.8 F 111 H 20 97/66 94 L 05/14/17 10:00 05/14/17 10:00 05/14/17 10:00 05/14/17 10:00 05/14/17 10:00 ACTIVE HOME MEDICATIONS Acetaminophen/Hydrocodone Bitart ([place] 10-325) 1 tab PO TID [facility] Last Admin: 05/14/17 08:31 Dose: 1 tab Budesonide/Formoterol Fumarate (Symbicort 160-4.5 Mcg Inhaler) 1 puff IH BID [facility] Last Admin: 05/14/17 08:29 Dose: 1 puff Clonazepam (Klonopin) 1 mg PO BEDTIME [facility] Last Admin: 05/13/17 21:21 Dose: 1 mg Clonazepam (Klonopin) 0.5 mg PO 0800,1400 [facility] Last Admin: 05/14/17 08:30 Dose: 0.5 mg Cyclobenzaprine HCl (Flexeril) 10 mg PO BID [facility] Last Admin: 05/14/17 08:30 Dose: 10 mg Promethazine HCl (Phenergan Tab) 25 mg PO Q4-6H PRN PRN Reason: Nausea / Vomiting Last Admin: 05/12/17 00:46 Dose: 25 mg Roflumilast (Daliresp) 500 mcg PO DAILY [facility] Last Admin: 05/14/17 08:31 Dose: 500 mcg Sotalol HCl (Betapace) 40 mg PO BID [facility] Last Admin: 05/14/17 08:30 Dose: 40 mg Sucralfate (Carafate) 1 gm PO ACHS [facility] Last Admin: 05/14/17 11:28 Dose: 1 gm PROTONIX 40MG PO BID FLOMAX 0.4MG PO DAILY MUCINEX 600MG PO EVERY 12 HOURS DUONEBS 1 VIAL EVERY 4 HOURS NEEDED ALLERGIES Penicillins Adverse Reaction (Verified 09/05/15 19:21) NEW PRESCRIPTIONS: NEW MEDICATIONS: 1. LEVAQUIN 250MG TAKE 1 TABLET DAILY X 5 DAYS. TAKE UNTIL ALL GONE. 2. LASIX 20MG TAKE 1 TABLET DAILY. 3. K-TAB 10MEQ TAKE 1 CAPSULE DAILY. TAKE WITH FOOD. 4. PREDNISONE 20MG TAKE 1 TABLET DAILY X 5 DAYS THEN 10MG TABLET DAILY X 5 DAYS. TAKE WITH FOOD. SMOKING: AVOID SECOND HAND SMOKE DISEASE SPECIFIC EDUCATION: FLU BRONCHITIS MEDICATIONS STEROID THERAPY ACTIVITY IMPORTANCE OF MONITORING FOR BLEEDING IN URINE OR STOOL LAB REVIEW: 05/14/17 05:00 05/14/17 05:00 05/14/17 09:25: Puncture Site Lr, O2 Saturation 88.0 L, ABG pH 7.43, ABG pCO2 38.8, ABG pO2 53.0 L*, ABG HCO3 25.7, ABG Total CO2 27, ABG Base Excess 1, Michael Test +, FiO2 % 21.0 05/14/17 05:00: Sodium 136, Potassium 4.1, Chloride 103, Carbon Dioxide 29, Anion Gap 8.1, BUN 49 H, Creatinine 1.28 H, Estimated GFR (MDRD) 57.00, BUN/ Creatinine Ratio 38.28, Glucose 113, Calcium 9.8, Total Bilirubin 0.9, AST 27, ALT 29, Alkaline Phosphatase 80, Total Protein 5.3 L, Albumin 2.1 L, Globulin 3.2, Albumin/Globulin Ratio 0.66 05/14/17 05:00: WBC 25.65 H, RBC 2.85 L, Hgb 8.6 L, Hct 26.6 L, MCV 93.3, MCH 30.2, MCHC 32.3, RDW Coeff of Charisse 15.7 H, Plt Count 376, Immature Gran % (Auto) 3.7, Neut % (Auto) 85.5, Lymph % (Auto) 5.5 L, [place] % (Auto) 5.2, Eos % (Auto) 0.0, Baso % (Auto) 0.1, Immature Gran # (Auto) 1.0, Neut # 21.9 H, Lymph # 1.4, [place] # 1.3, Eos # 0.0, Baso # 0.0 05/13/17 14:01: Puncture Site Rr, O2 Saturation 87.0 L, ABG pH 7.367, ABG pCO2 44.1, ABG pO2 55.0 L*, ABG HCO3 25.3, ABG Total CO2 27, ABG Base Excess 0, Michael Test +, FiO2 % 21.0 PLAN: DISCHARGE HOME TODAY. CONTINUE YOUR HOME MEDICATIONS PER NURSING SHEETS EXCEPT: 1. DECREASE YOUR BETAPACE TO 40MG 2 TIMES A DAY FROM 80MG 2 TIMES A DAY (TAKE 1/ 2 TAB 2 TIMES A DAY). NEW MEDICATIONS: 1. LEVAQUIN 250MG TAKE 1 TABLET DAILY X 5 DAYS. TAKE UNTIL ALL GONE. 2. LASIX 20MG TAKE 1 TABLET DAILY. 3. K-TAB 10MEQ TAKE 1 CAPSULE DAILY. TAKE WITH FOOD. 4. PREDNISONE 20MG TAKE 1 TABLET DAILY X 5 DAYS THEN 10MG TABLET DAILY X 5 DAYS. TAKE WITH FOOD. REGULAR DIET. GRADUALLY RESUME ACTIVITY. KEEP LEGS ELEVATED MUCH POSSIBLE. AVOID EXTREME COLD WEATHER AND CROWDS. FOLLOW UP WITH DR. BARROSO ON FridayMay AT 10AM. KEEP YOUR SCHEDULED APPOINTMENT WITH DR. LI ON 05/15/17 AT 1:30 P.M. EVALUATED BY CARDIO-THORACIC AND SURGEONS BY DR. MCINTYRE AT [facility], DR. LOUIS AT [facility] AND DR. MCKNIGHT AT [place] - ALL OF THEM AGREED POOR SURGICAL CANDIDATE. SITTING UP IN BED. ALERT AND ORIENTED X 4. DR. BARROSO INTO SEE PATIENT. PATIENT STATES FEELING BETTER. PATIENT STATES WANTS TO GO HOME. DR. BARROSO DISCUSSED PLAN OF CARE AND POSSIBLE DISCHARGE LATER TODAY. PATIENT VERBALIZES UNDERSTANDING AND AGREEMENT. APPETITE IS POOR. VITAL SIGNS ARE STABLE. HEART RATE IS TACHY AT TIMES. HAS BEEN AFEBRILE. POX 96% ON O2 AT 2L/C. HEART TONES ARE REGULAR WITH TELEMETRY REVEALING SINUS TACH WITH PVC. LUNGS ARE CLEAR WITH DIMINISHED BREATH SOUNDS, HAS PRODUCTIVE COUGH OF THICK GREEN SPUTUM. IS DYSPNEIC WITH ANY ACTIVITY. IS UNABLE TO LIE FLAT. ABDOMEN IS SOFT, NON-TENDER WITH BOWEL SOUNDS POSITIVE IN ALL 4 QUADS. LAST BM 05/10/17. PEDAL PULSES POSITIVE WITHOUT EDEMA. HAS MEDIPORT TO LEFT CHEST. IS A STAND BY ASSIST WITH ACTIVITIES. DR. TRUNG BARROSO MD Arley JOHNSTON APRN
[2017-05-14 15:24] VITALS: BP 100/72; TEMP 97.6
--- NOTE | 2017-05-19 08:07 | DS ---
DATE OF SERVICE: 05/14/17 FINAL DIAGNOSIS: 1. Influenza A/Bronchitis/Dehydration 2. COPD/Cor Pulmonale 3. Anemia-Chronic GI bleed (Got 2 units of packed red cells) 4. Esophageal cancer, newly diagnosed-Dr. Torrez 01/2017 (Dr. Lincoln-Chem/ Radiation) 5. Poorly differentiated carcinoma with gland formation and signet ring component 6. Chronic kidney disease 7. Cardiac arrhythmia 8. Leg edema Chronic-Dependant/Cor Pulmonale 9. Enlarged Prostate 10.Appendectomy, 2012 11.Hernia repair, 2012 12.Former smoker, stopped 2012 LAST VITALS: Temperature 97.8, pulse 111, respiratory rate 20, blood pressure 97/66 and pulse ox 94%. DISCHARGE INSTRUCTIONS: Discharge home today. Continue home medication per nursing sheet except 1. Decrease Betapace to 40mg two times a day from 80mg two times a day (take 1/2 tablet two times a day. Follow up with Dr. Boogie on FridayMay 16 at 10am. Keep scheduled appointment with Dr. Torrez on 05/15/17 at 1:30pm. Evaluated by cardio-thoracic and surgeons by Dr. Barney at [facility], Dr. Kurtz at [facility] and Dr. Chaidez at [place]- all of them agreed poor surgical candidate. MEDICATIONS AT DISCHARGE: Michie 10-325 one tablet PO three times a day Symbicort 160-4.5mcg inhaler one puff IH twice a day Klonopin 1mg PO bedtime Klonopin 0.5mg PO 0800, 1400 Flexeril 10mg Po twice a day Phenergan 25mg Po Q 4-6 hours PRN Daliresp 500mcg PO daily Betapace 40mg PO twice a day Carafate 1gm PO ACHS Protonix 40mg PO twice a day Flomax 0.4mg PO daily Mucinex 600mg Po every 12 hours DUO NEBS 1 vial every 4 hours as needed ALLERGIES: Penicillin NEW PRESCRIPTIONS: Levaquin 250mg take one tablet daily x5 days. take until all gone Lasix 20mg take one tablet daily K-tab 10meq take one capsule daily. Take with food. Prednisone 20mg take tablet daily x5 days then 10mg tablet daily x5 take with food DIET INSTRUCTIONS: Regular diet ACTIVITY: Gradually resume activity. Keep legs elevated as much as possible. Avoid extreme cold weather and crowds. SMOKING: Avoid second hand smoke DISEASE SPECIFIC EDUCATION: FLU BRONCHITIS MEDICATIONS STEROID THERAPY ACTIVITY IMPORTANCE OF MONITORING FOR BLEEDING IN URINE OR STOOL HOSPITAL COURSE: Mr. Soriano was hospitalized with influenza A, bronchitis and dehydration. The patient's condition improved after treatment with steroids, antibiotics and NEBS treatment. Later on he became more short of breath and went into fluid overload with azotemia. The patient's hgb also dropped. The patient has chronic GI blood loss from his medical problems like he esophageal cancer and gastritis. The patient was given two units of packed red cells. His hgb still has continued to slide some but there is no evidence of active GI bleed. The patient is going to be seen by Dr. Torrez tomorrow as an outpatient. The patient's respiratory status also improved with IV Lasix, more steroids and antibiotics. At the time of discharge the patient's oxygen saturation was 88-89 % on room air but he is going to be put on 2 liters of home oxygen. The patient has severe chronic lung because of which Dr. Kurtz, Dr. Barney and Dr. Chaidez at three different hospitals they are reluctant to operate on his esophageal cancer stating that he is very poor surgical risk. The patient was scheduled for chemotherapy and radiation this week which was cancelled because of the patient's influenza with it's complications. On the day of discharge the patient 's blood gasses on room air pO2 53, pCO2 2 38, pH 7.43 with 80% saturation with HCO3 of 25. CONDITION: Stable PROGNOSIS: Poor The patient has been advised to join pulmonary rehab to improve his pulmonary function and advised to consider chemotherapy and radiation with the hope that his medical condition is improved to the point where surgeons maybe able to take up his case. TIME SPENT: More than 60 minutes. [facility]
--- NOTE | 2017-05-19 08:41 | PN ---
05/07/17: Level 5 05/08/17: Intermediate 05/09/17: Intermediate 05/10/17: Intermediate 05/11/17: Extensive 05/12/17: Extensive 05/13/17: Intermediate 05/14/17: D as in discharge MTDD
== END 2017-05-14 16:15 | disposition home or self-care (01) | DRG 152 ==
LOC: MEDSURG B 12:26 → UNDOADMIN 12:26 → MEDSURG A 12:26
PROVIDERS: ADMIT Internal Medicine; ATTEND Internal Medicine
PROC: 30233N1 Transfusion of Nonautologous Red Blood Cells into Peripheral Vein, Percutaneous Approach (ICD-10-PCS; principal; 2017-05-11)
PROC: 30233N1 Transfusion of Nonautologous Red Blood Cells into Peripheral Vein, Percutaneous Approach (ICD-10-PCS; 2017-05-11)
DX: J11.1 Influenza due to unidentified influenza virus with other respiratory manifestations (principal); K29.01 Acute gastritis with bleeding; J81.0 Acute pulmonary edema; C15.9 Malignant neoplasm of esophagus, unspecified; J44.0 Chronic obstructive pulmonary disease with (acute) lower respiratory infection; K92.0 Hematemesis; J20.9 Acute bronchitis, unspecified; E87.70 Fluid overload, unspecified; E86.0 Dehydration; R06.02 Shortness of breath; D64.9 Anemia, unspecified; N18.9 Chronic kidney disease, unspecified; I49.9 Cardiac arrhythmia, unspecified; I27.81 Cor pulmonale (chronic); N40.0 Benign prostatic hyperplasia without lower urinary tract symptoms; Z98.890 Other specified postprocedural states; Z87.891 Personal history of nicotine dependence; I51.7 Cardiomegaly; Z79.899 Other long term (current) drug therapy
CPT/HCPCS: 36415; 36430; 80053; 82271; 82803; 83880; 85007; 85014; 85018; 85025; 86850; 86900; 86922; 87040; 87070; 87081; 87502; 94640

== ENCOUNTER 2017-05-30 15:48 | Inpatient (IN) ==
[2017-05-30] MEDS ORDERED: SOLU-MEDROL 125 MG IVP STA (15:51)
[2017-05-30] MEDS ORDERED: DUONEB NEB STA (15:51)
--- NOTE | 2017-05-30 16:16 | DI ---
EXAM: CHEST FRONTAL VIEW HISTORY: Shortness of breath. COMPARISON: 05/12/2017 FINDINGS: Prominent heart size is again noted. Left port catheter is stable ending over the superio r vena cava. Probable mild left base consolidation. No active congestive heart failure, definite pl eural fluid or pneumothorax. Limited exam. IMPRESSION: Cannot exclude mild left base consolidation which could represent atelectasis or mild pneumonia.
--- NOTE | 2017-05-30 17:19 | ED.PDOC ---
General Stated Complaint: short of air Time Seen by Physician: 16:00 (seen with EMS AND NURSING STAFF) Mode of Arrival: Ambulance Information Source: Patient, Family, EMT Exam Limitations: No limitations Nursing and Triage Documentation Reviewed and Agree: Yes (ARRIVED TACHYPNEIC, SHORT OF AIR ) Reviewed sepsis parameters & appropriate labs ordered?: Yes (HISTORY OF INOPERABLE ESOPHAGEAL CANCER ) <SAVANNAH CONNOR - Last Filed: 05/30/17 18:18> <OLEG KINSEY - Last Filed: 05/30/17 18:49> ED Provider: Dr. 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 Denies: Fever, Chest pain, Pleuritic chest pain, Wheezing, Hemoptysis, Dizziness, Calf pain, Calf swelling, Edema, Hoarseness, Sinus discomfort, Vomiting, Sore throat, Weight loss, Increased thirst, Increased appetite, Increased urination Related History: Reports: Similar episode History of Healthcare-Acquired Pneumonia: No Related Surgical History: Reports: None Pulmonary Embolism Risk Factors: Bedrest Cardiac Risk Factors: Reports: None Pseudomonas Risk Factors: Reports: Chronic Lung Disease Tuberculosis Risk Factors: Reports: Chronic Resp. Faliure Status Asthmaticus Risk Factors: Reports: None Home Oxygen Use: No Recent Stress Test: No Recent Echo/LV Function: No Current Antibiotic Use: No Current Asthma Medication Use: No Respiratory Distress: None Inadequate Respiratory Effort: No Dysphagia Present: No Stridor Present: No JVD Present: No Retractions: Not Present Diminished Breath Sounds: No Prolonged Respiration: Expiratory phase Sinus Tenderness: None Grunting Respirations: No Kussmaul Respirations: No Differential Diagnoses: CHF, Pulmonary Edema, COPD Exacerbation, Pneumonia, Bronchitis, URI, Lower Resp. Infection <SAVANNAH CONNOR Last Filed: 05/30/17 18:18> Review of Systems - Review Of Systems Constitutional: Reports: Malaise, Weakness, Loss of appetite Eyes: Reports: No symptoms Ears, Nose, Mouth, Throat: Reports: No symptoms Respiratory: Reports: Cough, Short of air, Wheezing Cardiac: Reports: No symptoms GI: Reports: No symptoms : Reports: No symptoms Musculoskeletal: Reports: No symptoms Skin: Reports: No symptoms Neurological: Reports: No symptoms Endocrine: Reports: No symptoms Hematologic/Lymphatic: Reports: No symptoms All Other Systems: Reviewed and Negative <SAVANNAH CONNOR Filed: 05/30/17 18:18> Past Medical History - Past Medical History Previously Healthy: Yes Endocrine: Reports: None Cardiovascular: Reports: None Respiratory: Reports: COPD, Pneumonia Hematological: Reports: None Gastrointestinal: Reports: GERD, Other (Barretts esophagua. ) Genitourinary: Reports: None Neuro/Psych: Reports: None Musculoskeletal: Reports: None Cancer: Reports: None Other Pertinent Past Medical History: BPH - Surgical History General Surgical History: Reports: Appendectomy, Hernia Repair - Family History Family History: Reports: None - Social History Smoking Status: Former smoker Hx Substance Use: No Alcohol Screening: None - Immunizations Tetanus Shot up to Date: Yes <SAVANNAH CONNOR Filed: 05/30/17 18:18> Interpretation - Radiology Interpretation Radiology Interpretation By: Radiologist <SAVANNAH CONNOR Last Filed: 05/30/17 18:18> Physician Notification - Case Discussed Physician Notified: MARIETTA JOINER Time of Notification: 18:00 (OBTAIN CT CHEST R/O PE) <SAVANNAH CONNOR Last Filed: 05/30/17 18:18> Critical Care Note - Critical Care Note Total Time (mins): 0 <SAVANNAH CONNOR Filed: 05/30/17 18:18> Course - Course Hematology/Chemistry: 05/30/17 16:10 05/30/17 16:10 <SAVANNAH CONNOR - Last Filed: 05/30/17 18:18> - Course Hematology/Chemistry: 05/30/17 16:10 05/30/17 16:10 <OLEG KINSEY - Last Filed: 05/30/17 18:49> - Course Orders, Labs, Meds: Lab Review 05/30/17 05/30/17 05/30/17 15:52 16:10 16:10 WBC 15.14 H RBC 3.28 L Hgb 9.1 L Hct 30.3 L MCV 92.4 MCH 27.7 MCHC 30.0 L RDW Coeff of Charisse 14.8 Plt Count 405 Immature Gran % (Auto) 0.6 Neut % (Auto) 73.9 Lymph % (Auto) 17.3 Stanly % (Auto) 7.5 Eos % (Auto) 0.5 Baso % (Auto) 0.2 Immature Gran # (Auto) 0.1 Neut # 11.2 H Lymph # 2.6 Stanly # 1.1 Eos # 0.1 Baso # 0.0 D-Dimer (Manual) Puncture Site Lr O2 Saturation 100.0 ABG pH 7.322 L ABG pCO2 56.1 H ABG pO2 208.0 H ABG HCO3 29.1 H ABG Total CO2 31 H ABG Base Excess 3 H Michael Test + O2 Delivery Device Nrb Oxygen Liter Flow 15.00 FiO2 % 100.0 Sodium 138 Potassium 3.8 Chloride 99 Carbon Dioxide 29 Anion Gap 13.8 BUN 10 Creatinine 1.11 H Estimated GFR (MDRD) 67.00 BUN/Creatinine Ratio 9.00 Glucose 126 H Lactic Acid Calcium 8.6 Total Bilirubin 0.6 AST 15 ALT 13 Alkaline Phosphatase 92 Total Creatine Kinase 14 Troponin I 0.0510 Total Protein 6.4 Albumin 2.2 L Globulin 4.2 Albumin/Globulin Ratio 0.52 Procalcitonin 05/30/17 05/30/17 05/30/17 16:10 16:10 16:10 WBC RBC Hgb Hct MCV MCH MCHC RDW Coeff of Charisse Plt Count Immature Gran % (Auto) Neut % (Auto) Lymph % (Auto) Stanly % (Auto) Eos % (Auto) Baso % (Auto) Immature Gran # (Auto) Neut # Lymph # Stanly # Eos # Baso # D-Dimer (Manual) 1094.36 Puncture Site O2 Saturation ABG pH ABG pCO2 ABG pO2 ABG HCO3 ABG Total CO2 ABG Base Excess Michael Test O2 Delivery Device Oxygen Liter Flow FiO2 % Sodium Potassium Chloride Carbon Dioxide Anion Gap BUN Creatinine Estimated GFR (MDRD) BUN/Creatinine Ratio Glucose Lactic Acid 14.5 Calcium Total Bilirubin AST ALT Alkaline Phosphatase Total Creatine Kinase Troponin I Total Protein Albumin Globulin Albumin/Globulin Ratio Procalcitonin 0.41 Orders Category Date Time Status ABG DRAW REQUEST Stat CARDIO 05/30/17 15:52 Completed EKG-(ED ONLY) Stat CARDIO 05/30/17 15:53 Completed NEBULIZER TREATMENT Stat CARDIO 05/30/17 15:51 Completed NPO REMINDER: IMAGING ONCE CARE 05/30/17 17:21 Completed ABG Stat LAB 05/30/17 15:52 Completed BLOOD CULTURE Stat LAB 05/30/17 16:10 Received CBC W/ AUTO DIFF Stat LAB 05/30/17 16:10 Completed COMPREHENSIVE METABOLIC PANEL Stat LAB 05/30/17 16:10 Completed CREATINE KINASE Stat LAB 05/30/17 16:10 Completed D-DIMER Stat LAB 05/30/17 16:10 Completed LACTIC ACID Stat LAB 05/30/17 16:10 Completed PROCALCITONIN Stat LAB 05/30/17 16:10 Completed TROPONIN I Stat LAB 05/30/17 16:10 Completed Ipratropium/Albuterol Neb [Duoneb] MEDS 05/30/17 15:51 Discontinued 1 vial NEB ONCE STA Methylprednisolone Sod Succ/Pf [Solu-Medrol 125 mg] MEDS 05/30/17 15:51 Discontinued 125 mg IVP ONCE STA CHEST, 1V AP ONLY Stat RADS 05/30/17 15:[address] CHEST PE PROTOCOL Stat RADS 05/30/17 17:21 Completed Medications Discontinued Medications Generic Name Dose Route Start Last Admin Trade Name Freq PRN Reason Stop Dose Admin Albuterol/Ipratropium 1 vial 05/30/17 15:51 05/30/17 16:24 Duoneb NEB 05/30/17 15:52 1 vial ONCE STA Administration Methylprednisolone Sodium Succinate 125 mg 05/30/17 15:51 05/30/17 16:10 Solu-Medrol 125 Mg IVP 05/30/17 15:52 125 mg ONCE STA Administration Vital Signs: Temp Pulse Resp BP Pulse Ox 05/30/17 15:49 99.3 F 147 H 24 98/68 95 Departure - Departure Time of Disposition: 19:00 Pt referred to PMD for follow-up: Yes IPMP verified?: Yes Disposition Discussed With: Patient <SAVANNAH CONNOR - Last Filed: 05/30/17 18:18> - Departure Pt referred to PMD for follow-up: Yes IPMP verified?: No Disposition Discussed With: Patient, Family <OLEG KINSEY - Last Filed: 05/30/17 18:49> - Departure Disposition: ADMITTED INPATIENT Discharge Problem: Shortness of breath, COPD exacerbation Instructions: COPD (Chronic Obstructive Pulmonary Disease) (ED), Bacterial Pneumonia (ED) Condition: Good Allergies/Adverse Reactions: Allergies Penicillins Adverse Reaction (Verified 05/30/17 16:16) Home Medications: Ambulatory Orders Clonazepam 0.5 mg PO TID 04/15/13 Cyclobenzaprine HCl [Flexeril] 10 mg PO BID 04/15/13 Hydrocodone Bit/Acetaminophen [Lortab 10-500] 10 tab PO TID 04/15/13 Pantoprazole Sodium 40 mg PO BID 04/15/13 Tamsulosin HCl [Flomax] 0.4 mg PO DAILY 04/04/14 Budesonide/Formoterol Fumarate [Symbicort 160-4.5 Mcg Inhaler] 1 puff IH BID Guaifenesin [Mucinex] 600 mg PO BID 04/27/17 Ipratropium/Albuterol Neb [Duoneb] 1 vial NEB RTQ4H PRN 04/27/17 Promethazine HCl [Phenergan Tab] 25 mg PO PRN PRN 04/27/17 Sotalol HCl [Betapace] 40 mg PO BID 04/27/17 Sucralfate [Carafate] 1 gm PO Q6HR 04/27/17 Albuterol Sulfate [Ventolin Hfa] 8 gm IN Q2-4H PRN 05/30/17 Ascorbic Acid [Vitamin C] 500 mg PO DAILY 05/30/17 Multivitamin [Multi-Vitamin Daily] 1 tab PO DAILY 05/30/17 Pantoprazole Sodium [Protonix] 40 mg PO DAILY 05/30/17
--- NOTE | 2017-05-30 18:44 | CT ---
EXAM: CTA chest with contrast using PE protocol. TECHNIQUE: Helical CTA of the chest was performed with contrast in axial plane with coronal and sagit fadumo reconstructions and separate work station 3-D renderings. COMPARISON: Chest x-ray from 05/12/2017 and from same date today HISTORY: Chest pain. Short of breath FINDINGS: There are no filling defects in the pulmonary arteries to the level of the subsegmental branches. The re is no sign of ventricular strain. There are extensive multifocal air space opacities in the left l jane base. There is continued elevation of the left hemidiaphragm which is new compared to the earlie r chest x-ray. There is some minimal atelectasis in the right lung base. There is no effusion or eduardo lure. There is no pathologic supraclavicular, axillary, mediastinal or hilar adenopathy. There is no pericardial effusion or pneumothorax. The aorta demonstrates minimal atherosclerotic calc ifications with no dissection or aneurysm. The upper abdomen is benign with no acute abnormality. Th ere are no acute osseous abnormalities. IMPRESSION: 1. No evidence for pulmonary embolus. 2. Left lung base infiltrate with a significant component of atelectasis with resulting elevation of the left hemidiaphragm.
[2017-05-30] MEDS ORDERED: PROAIR HFA IH PRN (18:53)
[2017-05-30] MEDS ORDERED: PHENERGAN TAB PO PRN (18:53)
[2017-05-30 20:29] VITALS: BMI 31.4
[2017-05-30] MEDS ORDERED: SODIUM CHLORIDE 500 ML IV SCH (20:30)
[2017-05-30] MEDS ORDERED: SODIUM CHLORIDE 1,000 ML IV SCH (20:30)
[2017-05-30] MEDS ORDERED: CARAFATE PO SCH (21:00)
[2017-05-30] MEDS ORDERED: MUCINEX PO SCH (21:00)
[2017-05-30] MEDS ORDERED: HYDROCODONE BIT PO SCH (21:00)
[2017-05-30] MEDS ORDERED: ACETAMINOPHEN PO SCH (21:00)
[2017-05-30] MEDS ORDERED: LEVAQUIN 750 MG in PREMIX 150 ML D5W 1 BAG IV SCH (21:00)
[2017-05-30] MEDS: SOLU-MEDROL 40 MG IVP SCH (21:09)
[2017-05-30] MEDS: LOVENOX SUBCUT SCH (21:13)
[2017-05-30] MEDS: MUCINEX PO SCH (21:13)
[2017-05-30] MEDS: FLEXERIL PO SCH (21:14)
[2017-05-30] MEDS: NORCO 10-325 PO SCH (21:14)
[2017-05-30] MEDS: BETAPACE PO SCH (21:14)
[2017-05-30] MEDS: PROTONIX PO SCH (21:14)
[2017-05-30] MEDS: CARAFATE PO SCH (21:14)
[2017-05-30] MEDS: KLONOPIN PO SCH (21:14)
[2017-05-30] MEDS: SYMBICORT 160-4.5 MCG INHALER IH SCH (21:17)
[2017-05-30] MEDS: DUONEB NEB SCH (23:09)
[2017-05-31] MEDS: DUONEB NEB SCH ×4 (04:36→22:38)
[2017-05-31] MEDS: PROTONIX PO SCH ×2 (05:52→16:38)
[2017-05-31] MEDS: CARAFATE PO SCH ×4 (05:52→21:42)
[2017-05-31] MEDS: MUCINEX PO SCH ×2 (09:18→21:43)
[2017-05-31] MEDS: NORCO 10-325 PO SCH ×3 (09:18→21:44)
[2017-05-31] MEDS: BETAPACE PO SCH ×2 (09:19→21:44)
[2017-05-31] MEDS: FLEXERIL PO SCH ×2 (09:19→21:44)
[2017-05-31] MEDS: SOLU-MEDROL 40 MG IVP SCH ×2 (09:19→21:46)
[2017-05-31] MEDS: KLONOPIN PO SCH ×3 (09:19→21:44)
[2017-05-31] MEDS: FLOMAX PO SCH (09:19)
[2017-05-31] MEDS: SYMBICORT 160-4.5 MCG INHALER IH SCH ×2 (10:05→21:47)
[2017-05-31] MEDS: LOVENOX SUBCUT SCH (21:46)
[2017-06-01] MEDS: DUONEB NEB SCH (04:33)
[2017-06-01] MEDS: PROTONIX PO SCH (05:49)
[2017-06-01] MEDS: CARAFATE PO SCH (05:49)
[2017-06-01] MEDS: MUCINEX PO SCH (08:13)
[2017-06-01] MEDS: SYMBICORT 160-4.5 MCG INHALER IH SCH (08:13)
[2017-06-01] MEDS: FLEXERIL PO SCH (08:13)
[2017-06-01] MEDS: FLOMAX PO SCH (08:13)
[2017-06-01] MEDS: BETAPACE PO SCH (08:14)
[2017-06-01] MEDS: SOLU-MEDROL 40 MG IVP SCH (08:14)
[2017-06-01] MEDS: KLONOPIN PO SCH (08:20)
[2017-06-01] MEDS: NORCO 10-325 PO SCH (08:20)
[2017-06-01] MEDS ORDERED: AVELOX 400 MG in PREMIX 250 ML NS 1 BAG IV SCH (09:00)
[2017-06-01 11:27] VITALS: BP 90/40; TEMP 97.7
--- NOTE | 2017-06-04 11:43 | DS ---
PATIENT IDENTIFICATION: The patient was admitted on 05/30/17 and 06/01/17 at 10:55am. 66 year old male admitted to [address] because of shortness of breath that had been increasing in the last week prior to presentation. He had been admitted 04/27/17 and discharged on 04/29/17 and again admitted 05/07/17 and discharge 05/14/17. HOSPITAL COURSE: This patient has pulmonary problems consisting of COPD severe with respiratory failure using supplemental oxygen. He also had esophageal carcinoma and no surgical intervention was recommended on account of his pulmonary problems. He had been to the cardiovascular surgeon in [place] and also in [facility]. The patient's D-Dimer at the emergency room was elevated but the CT scan of the chest with contrast showed pulmonary embolus. Left lung base infiltrate had been there previously also. The patient had been on Levofloxacin 750mg intervenously daily and was changed to Avelox 400mg. The patient was continued mostly on his home medications. The hgb dropped to 8.5 from 9.1 on the next hospital day 05/31/17. The patient blood pressure had been fluctuating. The blood pressure on 06/01/17 prior to his demise was about the same as admission and 98/68. Blood pressure 06/01/17 5:27am was 90/60 and then at 10:00 it was 90/40. His respiratory rate at 10:00am was 20 and oxygen saturation was 96 at 2 liters. I was notified by the Nurse Mary Ann that Mr. Murphy had and was attended by Dr. Stringer from the emergency room. He was pronounced at 10:55am. I asked the nurse Mary Ann on what happened and she told me that Mr. Soriano was alert and oriented about 2 or 3 minutes before the incident. She was in the room and he did not complaint. The did walk into the room and found him in the floor with blood all over. It appears to have vomited according to the doctor that attended him. Pulse rate was down to 20 at that time and the declined any resuscitation. The patient's vital signs disappeared and was pronounced at 10:55am by Dr. Stirnger. FINAL DIAGNOSES: Cause of this upper gastrointestinal bleeding secondary to esophageal carcinoma. 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 MTDD
--- NOTE | 2017-06-04 13:18 | HP ---
CHIEF COMPLAINT: Shortness of breath SOURCE OF HISTORY: The patient and emergency room records from the nurse plus MD HISTORY OF PRESENT ILLNESS: The patient is known to have chronic obstructive lung disease on supplemental oxygen. He was admitted 04/27/17 and discharged 04/29/17 with the diagnosis of pneumonia left lower lobe. The patient had a chest CT as well as chest x-ray during that admission. This patient again was readmitted 05/07/17 with exacerbation of pneumonitis. He was discharged 05/14/17. The patient always had some shortness of breath but noted the shortness of breath worsening in the last week prior to presentation to the emergency room this time. The emergency room physician did contact me with regards to a possible admission. He did tell me the history and since I do not known the patient I felt that the patient needed further testing because of the shortness of breath. He did not tell me that this patient is on the chronic respiratory failure with supplemental oxygen. The patient also has esophageal carcinoma but could not be operated on account of his lung problems. He still does not have any problems swallowing food at this time. he claimed that he did not have any symptoms but did undergo surveillance endoscopy because of Easley's esophagus. The D-Dimer was elevated and a CT of the chest with contrast was done showing no pulmonary embolization. The patient does have atelectasis as well as pneumonitis in the left lower lobe which was present back on 04/27/17. PAST PERSONAL HISTORY: The patient has significant comorbidities and significant medical illness Supraventricular tachycardiac GERD COPD with supplemental oxygen Peripheral arterial disease Hypertension Chronic kidney disease stage 3 History of elevated PSA History of Easley's esophagus now Esophageal carcinoma Previous history of pneumonia versus atelectasis PAST SURGICAL HISTORY: Right shoulder dislocation and was operated 1980 Port placement for chemotherapy Appendectomy Right inguinal hernia repair Endoscopy FAMILY HISTORY: Father of liver cirrhosis Mother had rectal carcinoma Both parents are 1 Brother and in seemingly good healthy SOCIAL HISTORY: The patient is and resides with his . He stopped smoking some 5 years ago. MEDICATIONS: Hydrocodone/ APAP 10-500 one three times a day Flexeril 10mg twice a day Clonazepam 1.5mg three times a day Protonix 40mg twice a day Flomax 0.4mg daily Sotalol 40mg twice a day Carafate 1gram Q 6 hours PO Symbicort 160/4.5mcg one puff twice a day Phenergan 25mg tablet PRN Mucinex 600mg twice a da DUO NEBS one vial nebulization Q 4 hours PRN Multivitamin one daily Scorbic acid 500mg daily Ventolin HFA one inhalation Q 2-4 hours PRN ALLERGIES: Penicillin REVIEW OF SYSTEMS: CONSTITUTIONAL: The patient denied any fever or chills but has fatigue from his chronic problems. PROPAGATION MANAGER: No headaches and no history of seizure disorders or ataxia VISUAL: Denies any double vision, blurred vision or transient loss of vision AUDITORY: Hearing is adequate. Denies any ringing, pain or drainage. RESPIRATORY: The patient is chronically short of breath and has supplemental oxygen 2 liters per minute nasal. The patient has cough somewhat productive. CARDIOVASCULAR: The patient denies any chest pain or chest tightness and no heart irregularities or palpitations. GASTROINTESTINAL: The patient is diagnosis with esophageal carcinoma on account of his lung condition. He has been to [place]. The patient denies any problems swallowing food at this time. GENITOURINARY: Denies any dysuria ENDOCRINE: Negative. His BMI is elevated at 31.4. INTEGUMENT:No rash or pleuritis HEMATOLOGIC: Denies any prolonged bleeding PSYCHIATRIC: Affect appears normal PHYSICAL EXAMINATION: GENERAL: 66 year old male was admitted to the hospital 05/30/17 from the emergency room because of increasing shortness of breath and questionable pneumonitis of left lower lobe. This finding was present back in 04/27/17. Chest CT revealed no embolization. VITAL SIGNS: Temperature 99.3, pulse 147, blood pressure 98/68, respiratory rate 24 oxygen saturation 95 at 2 liters. This patient was given 100% rebreather and the oxygen did rise beyond 200. HEAD: Unremarkable, scalp dermatis FACE: Symmetrical and equal with no facial weakness. The patient denies any significant tenderness in the frontal maxillary sinus areas to palpation under pressure. EYES: Pupils equal/reactive to light. Conjunctivae not pale. Sclerae not icteric. MOUTH: Unremarkable THROAT: No inflammation, tumors or exudate. NECK: No masses. No bruit. No tenderness. No rigidity. CHEST: Symmetrical and equal with adequate expansion LUNGS: Breath sounds are markedly diminished in both sides. Very minimal wheezing. HEART: Audible tachycardiac. No murmurs. ABDOMEN: Protuberant, soft with remarkably tenderness. No guarding. Bowel sounds are active, No masses palpable. EXTERNAL GENITALIA: Not examined RECTAL: Not performed LOWER EXTREMITIES: Some edema on both lower extremities. Pedal pulses are difficult to find and will be recorded again. This will be rechecked UPPER EXTREMITIES: Symmetrical and equal ASSESSMENT: 1. Pneumonitis, left lower lobe persistent with atelectasis 2. COPD severe with oxygen supplementation 3. History of esophageal carcinoma could be operated on account of his lung problems 4. History of supraventricular tachycardia 5. Chronic tobacco use and abuse stopped 5 years ago 6. Elevated BMI 7. History of GERD PROGNOSIS: Poor MTDD
== END 2017-06-01 14:15 | disposition expired | DRG 190 ==
LOC: ED 15:48 → MEDSURG B 19:19
PROVIDERS: ADMIT General Practice; ATTEND General Practice
DX: J44.1 Chronic obstructive pulmonary disease with (acute) exacerbation (principal); C15.9 Malignant neoplasm of esophagus, unspecified; J96.90 Respiratory failure, unspecified, unspecified whether with hypoxia or hypercapnia; K92.0 Hematemesis; K92.2 Gastrointestinal hemorrhage, unspecified; J98.11 Atelectasis; J18.9 Pneumonia, unspecified organism; D64.9 Anemia, unspecified; R79.1 Abnormal coagulation profile; R00.0 Tachycardia, unspecified; R53.1 Weakness; E66.9 Obesity, unspecified; Z87.19 Personal history of other diseases of the digestive system; Z95.828 Presence of other vascular implants and grafts; Z79.899 Other long term (current) drug therapy; Z99.81 Dependence on supplemental oxygen; Z87.891 Personal history of nicotine dependence
CPT/HCPCS: 36415; 80053; 82550; 82803; 83605; 83880; 84145; 84484; 85025; 85379; 86710; 87040; 87081; 93005; 93010; 94640; 99285